=== PATIENT | female | born 1940 | race African-American/Black ===

== ENCOUNTER 2017-05-31 12:34 | Inpatient (IN) ==
[2017-05-31] MEDS ORDERED: *HR* HYDROmorphone (PF) 1 MG/ML SYRINGE IVP ONE ×2 (12:41→15:39)
[2017-05-31] MEDS ORDERED: Ondansetron 4 MG/2 ML VIAL IVP ONE (12:41)
[2017-05-31] MEDS ORDERED: 0.9 % Sodium Chloride 1,000 ML IVC ONE (12:41)
[2017-05-31 13:06] LABS: Bilirubin,Urine Negative (Negative); Blood,Urine Trace-intact (Negative); Clarity,Urine Clear (Clear); Glucose,Urine (UA) Normal (Normal); Ketones,Urine Negative (Negative); Leukocyte Esterase,Urine Negative (Negative); Nitrite,Urine Negative (Negative); PH,Urine 8.5 pH Units (5.0-8.0); Protein,Urine 100 mg/dL (Neg-Trace); Urobilinogen,Urine Normal (Normal)
[2017-05-31 13:09] LABS: Color,Urine Light Yellow (Yellow)
[2017-05-31 13:20] LABS: Basophils # 0.1 K/mcL (0.0-0.2); Hematocrit 43.5 % (35.3-44.9); Hemoglobin 13.8 g/dL (11.5-15.4); Immature Granulocytes % 0.4 % (0-4); Lymphocytes % 20.2 %; Mean Corpuscular HGB Conc 31.7 g/dL (31.6-35.5); Mean Corpuscular Hemoglobin 29.7 pg (28.0-33.3); Mean Corpuscular Volume 93.5 fL (83.0-100.0); Mean Platelet Volume 10.8 fL (9.4-12.4); Monocytes # 0.2 K/mcL (0.0-1.3); Monocytes % 3.8 %; Neutrophils # 3.8 K/mcL (1.6-8.9); Platelet Count 268 K/mcL (140-400); Red Blood Count 4.65 M/mcL (3.82-4.97); Red Cell Distribution Width 13.5 % (11.5-14.5); Segmented Neutrophils % 74.6 %
[2017-05-31 13:28] LABS: INR 1.1; Prothrombin Time 12.1 Seconds (9.4-12.1)
[2017-05-31 13:42] LABS: Alanine Aminotransferase 24 Units/L (7-52); Albumin 4.7 g/dL (3.5-5.7); Alkaline Phosphatase 174 Units/L (34-104); Aspartate Amino Transferase 39 Units/L (13-39); BUN/Creatinine Ratio 16 (6-26); Bilirubin,Direct 0.2 mg/dL (0.0-0.2); Bilirubin,Indirect 0.9 mg/dL (0.0-1.2); Bilirubin,Total 1.1 mg/dL (0.3-1.0); Blood Urea Nitrogen 11 mg/dL (8-23); Calcium 9.9 mg/dL (8.6-10.3); Carbon Dioxide 25 mEq/L (23-29); Chloride 100 mEq/L (98-107); Globulin 4.5 g/dL (2.4-3.5); Glucose 125 mg/dL (70-105); Lipase 5 Units/L (11-82); Osmolality,Calculated 283 (280-300); Potassium 3.8 mEq/L (3.5-5.1); Sodium 136 mEq/L (136-145); Total Protein 9.2 g/dL (6.4-8.9); eGFR For African Americans > 60 (> 60); eGFR For Non-African Americans > 60 (> 60)
--- NOTE | 2017-05-31 13:50 | Emergency Department Note ---
Disposition Clinical Impression: Pancreatitis Qualifiers: Chronicity: acute Pancreatitis type: unspecified pancreatitis type Acute pancreatitis complication: unspecified Qualified Code(s): K85.90 - Acute pancreatitis without necrosis or infection, unspecified Abdominal pain Qualifiers: Abdominal location: epigastric Qualified Code(s): R10.13 - Epigastric pain Nausea and vomiting Qualifiers: Vomiting type: unspecified Vomiting Intractability: unspecified Qualified Code( s): R11.2 - Nausea with vomiting, unspecified Disposition: Admitted As Inpatient Condition: Good Time of Disposition: 15:55 Abdominal Pain HPI - General Chief Complaint: ED Abdominal Pain Stated Complaint: abd pain Time Seen by Provider: 05/31/17 12:37 Source: EMS Mode of arrival: ambulatory Limitations: no limitations Nursing Notes Reviewed: Yes Vital Signs Reviewed: Yes - History of Present Illness HPI Narrative: Patient presents emergency room by EMS for evaluation of abdominal pain. Patient has history of pancreatitis. She feels that this is similar to her previous issues of pancreatitis. Patient denies any trauma or injury. Denies any inciting agent at this time. Patient denies any nausea or vomiting. Denies chest pain shortness of breath headache vision changes fevers or chills. No diarrhea. Pain complaint is epigastric pain and left-sided chest wall pain. Pt Subjective Complaint: abdominal pain Onset (ago): Just [employer] Location: epigastric Pain Severity: moderate Pain Scale: 8 Quality: sharp Radiation: L flank Improves with: nothing Worsens with: nothing Associated symptoms: Reports: nausea. Denies: vomiting, diarrhea, fever, chills , constipation, dysuria, hematemesis, hematochezia, melena, hematuria Treatments prior to arrival: none - Related Data Home Medications Medication Instructions Recorded Confirmed Tizanidine [Zanaflex] 4 mg PO DAILY 05/16/15 08/02/16 Ranitidine HCl [Zantac] 150 mg PO TID 08/05/15 08/02/16 Citalopram Hydrobromide [Celexa] 40 mg PO DAILY 08/02/16 08/02/16 LORazepam [Ativan] 1 mg PO BID 08/02/16 08/02/16 Trazodone HCl 150 mg PO HS 08/02/16 08/02/16 Previous Rx's Medication Instructions Recorded OxyCODONE/APAP 10/325 [Percocet 1 tab PO Q6H PRN #0 11/23/16 10/325 MG] LORazepam [Ativan] 1 mg PO BID #30 tablet 08/02/16 Trazodone HCl 150 mg PO HS #30 tablet 08/02/16 Cyclobenzaprine [Flexeril] 10 mg PO TID #20 tablet 08/24/16 OxyCODONE/APAP 5/325 [Percocet 1 each PO Q6HR PRN #7 tablet 08/24/16 5/325] Tizanidine HCl 4 mg PO TID #14 tablet 08/24/16 Tramadol HCl [Ultram] 50 mg PO QID PRN #20 tab 08/24/16 Cephalexin [Keflex] 500 mg PO TID #30 capsule 10/20/16 Ondansetron ODT [Zofran ODT] 4 mg SL Q4HR #8 tab.rapdis 10/20/16 Dicyclomine [Bentyl] 10 mg PO QID #20 capsule 01/27/17 Allergies Allergy/AdvReac Type Severity Reaction Status Date / Time aspirin Allergy See Verified 05/31/17 12:34 Comments celecoxib [From Celebrex] Allergy Hives Verified 05/31/17 12:34 ibuprofen Allergy Hives Verified 05/31/17 12:34 Sulfa (Sulfonamide Allergy Rash Verified 05/31/17 12:34 Antibiotics) All systems ED: reviewed and negative except as stated. Review of Systems: As Per HPI Constitutional: Denies: fever, chills Cardiovascular: Denies: chest pain, palpitations, dyspnea on exertion, edema, syncope Respiratory: Denies: cough, dyspnea, wheezes, sputum production Gastrointestinal: Denies: abdominal pain, nausea, vomiting, diarrhea, constipation Genitourinary: Denies: urgency, dysuria, frequency Musculoskeletal: Denies: neck pain Neurological: Denies: headache Abdominal Pain PMH - Past Medical History Medical history: Reports: cancer, GERD, hyperlipidemia, hypertension, myocardial infarction, RA, thyroid disease, other Female Surgical History: Reports: appendectomy, breast surgery, cancer surgery, cholecystectomy, hip replacement, hysterectomy, knee replacement, orthopedic, 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 Psychiatric history: Reports: anxiety, depression - Social History Smoking status: Never smoker Alcohol use: Reports: none Drug use: Reports: none Physical Exam - General Limitations: no limitations General appearance: alert, in no apparent distress - Head Head exam: atraumatic, normocephalic, normal inspection - ENT ENT exam: normal exam, normal oropharynx, mucous membranes moist - Neck Neck exam: Present: normal inspection, full ROM, trachea midline - Chest Chest inspection: Present: normal inspection, symmetric chest wall rise - Respiratory Respiratory exam: Present: normal lung sounds bilaterally. Absent: respiratory distress, wheezes, stridor, accessory muscle use - Cardiovascular Cardiovascular exam: Present: regular rate, normal rhythm, normal heart sounds - Abdominal Exam Abdominal exam: Present: soft, tenderness. Absent: distention, guarding, rebound, rigidity, Guerra's sign, Rovsing's sign, tenderness at McBurney's Point - Extremities Exam Extremities exam: Present: normal inspection, full ROM, normal capillary refill. Absent: tenderness - Back Exam Back exam: Present: normal inspection, full ROM, CVA tenderness (L). Absent: tenderness, CVA tenderness (R) - Neurological Exam Neurological exam: Present: alert, oriented X3, CN II-XII intact, normal gait - Skin Skin exam: Present: warm, dry, intact, normal color Course Course Narrative: Patient seen and examined the time of arrival. See history of present illness. 76-year-old female presents emergency room with complaint of abdominal pain starting in her epigastrium and now radiating into her back. She has had this presentation multiple times in the past secondary to pancreatitis. Patient denies any recent trauma or injury. Denies eating anything out of the ordinary. Denies fevers chills chest pain shortness of breath headache vision changes nausea vomiting or diarrhea prior to the events here today. She is helping coming on over the last 24-48 hours ago. Patient has no specific history of aneurysm or dissection. She has long-standing multiple medical issues. Initial triage EKG does show T-wave inversions in V2 V3 that are new in comparison to an EKG on 01/27/17. Otherwise is no acute signs of ST segment elevation or electrolyte abnormality at this time. Intervals appear to be normal. [place] is normal. No acute signs of WPW or Brugada syndrome. Concern is noted for possible acute exacerbation of pancreatitis versus intra-abdominal past on November including renal stone or vascular related issue. Lactic acid CBC chemistry lipase as well as urinalysis to be collected at this time. Pain medication and fluids to be given. Nausea medication will be added on. Chest x -ray and CT of the abdomen will be ordered and resulted. Disposition to be determined once workup and treatment course has been completed - Reevaluation(s) Reevaluation #1: Labs are otherwise unremarkable at this time. Lactic acid is negative. CT imaging is pending. Pain has not been appropriately controlled per the patient of this time. Patient given a second dose of IV fentanyl. She does have a Dilaudid pain pump in place. This could be confounding the control of her pain at this time. Time: 15:07 Reevaluation #2: Patient found to have diffuse pancreatitis with inflammation and some fluid accumulation around the pancreas at this time. No visible signs of abscess. Vessels appear to be normal in the abdomen. Lab workup is otherwise unremarkable. Repeat dosing of Dilaudid given at this time. Patient will be admitted this time for definitive evaluation and management. Dr. Wesley and I reviewed the patient's presentation symptoms and history and he agrees with the projected course of care. No other recommendations at this time. Time: 15:54 Vital Signs Temperature 98.0 F 05/31/17 12:39 Pulse Rate 73 05/31/17 12:39 Respiratory Rate 16 05/31/17 12:39 Blood Pressure 214/115 05/31/17 12:39 O2 Sat by Pulse Oximetry 99 05/31/17 12:39 Temperature 98.0 F 05/31/17 12:39 Pulse Rate 78 05/31/17 13:29 Respiratory Rate 15 05/31/17 12:47 Blood Pressure 192/114 05/31/17 13:29 O2 Sat by Pulse Oximetry 98 05/31/17 13:29 Oxygen Delivery Oxygen Delivery Room Air Abdominal Pain - MDM Narrative Medical decision making narrative: Abdominal pain, nausea, - Medical Records Medical records reviewed: Yes I reviewed the patient's medical records. - Lab Data Lab results reviewed: Yes I reviewed the patient's lab results. Result diagrams: 05/31/17 13:12 05/31/17 13:12 Lab Results 05/31/17 05/31/17 05/31/17 Range/Units 12:50 13:12 13:12 WBC (4.3-11.1) K/mcL RBC (3.82-4.97) M/mcL Hgb (11.5-15.4) g/dL Hct (35.3-44.9) % MCV (83.0-100.0) fL MCH (28.0-33.3) pg MCHC (31.6-35.5) g/dL RDW (11.5-14.5) % Plt Count (140-400) K/mcL MPV (9.4-12.4) fL Immature Gran % (0-4) % Seg Neutrophils % % Lymphocytes % % Monocytes % % Eosinophils % % Basophils % % Neutrophils # (1.6-8.9) K/mcL Lymphocytes # (0.6-4.6) K/mcL Monocytes # (0.0-1.3) K/mcL Eosinophils # (0.0-0.6) K/mcL Basophils # (0.0-0.2) K/mcL PT 12.1 (9.4-12.1) Seconds INR 1.1 APTT 33.0 (26.0-36.0) Seconds Sodium (136-145) mEq/L Potassium (3.5-5.1) mEq/L Chloride (98-107) mEq/L Carbon Dioxide (23-29) mEq/L BUN (8-23) mg/dL Creatinine (0.60-1.20) mg/dL Est GFR ( Amer) (> 60) Est GFR (Non-Af Amer) (> 60) BUN/Creatinine Ratio (6-26) Glucose (70-105) mg/dL Calculated Osmolality (280-300) Lactic Acid 1.4 (0.5-2.2) mmol/L Calcium (8.6-10.3) mg/dL Total Bilirubin (0.3-1.0) mg/dL Direct Bilirubin (0.0-0.2) mg/dL Indirect Bilirubin (0.0-1.2) mg/dL AST (13-39) Units/L ALT (7-52) Units/L Alkaline Phosphatase (34-104) Units/L Troponin I (< 0.04) ng/mL Serum Total Protein (6.4-8.9) g/dL Albumin (3.5-5.7) g/dL Globulin (2.4-3.5) g/dL Albumin/Globulin Ratio (1.1-2.2) Lipase (11-82) Units/L Urine Color Light Yellow (Yellow) Urine Clarity Clear (Clear) Urine pH 8.5 H (5.0-8.0) pH Units Ur Specific [place] 1.020 (1.010-1.025) Urine Protein 100 H (Neg-Trace) mg/dL Urine Glucose (UA) Normal (Normal) mg/dL Urine Ketones Negative (Negative) mg/dL Urine Blood Trace-intact H (Negative) Urine Nitrite Negative (Negative) Urine Bilirubin Negative (Negative) Urine Urobilinogen Normal (Normal) mg/dL Ur Leukocyte Esterase Negative (Negative) Ur Culture Indicated? NO (NO) 05/31/17 05/31/17 05/31/17 Range/Units 13:12 13:12 13:12 WBC 5.0 (4.3-11.1) K/mcL RBC 4.65 (3.82-4.97) M/mcL Hgb 13.8 (11.5-15.4) g/dL Hct 43.5 (35.3-44.9) % MCV 93.5 (83.0-100.0) fL MCH 29.7 (28.0-33.3) pg MCHC 31.7 (31.6-35.5) g/dL RDW 13.5 (11.5-14.5) % Plt Count 268 (140-400) K/mcL MPV 10.8 (9.4-12.4) fL Immature Gran % 0.4 (0-4) % Seg Neutrophils % 74.6 % Lymphocytes % 20.2 % Monocytes % 3.8 % Eosinophils % 0.0 % Basophils % 1.0 % Neutrophils # 3.8 (1.6-8.9) K/mcL Lymphocytes # 1.0 (0.6-4.6) K/mcL Monocytes # 0.2 (0.0-1.3) K/mcL Eosinophils # 0.0 (0.0-0.6) K/mcL Basophils # 0.1 (0.0-0.2) K/mcL PT (9.4-12.1) Seconds INR APTT (26.0-36.0) Seconds Sodium 136 (136-145) mEq/L Potassium 3.8 (3.5-5.1) mEq/L Chloride 100 (98-107) mEq/L Carbon Dioxide 25 (23-29) mEq/L BUN 11 (8-23) mg/dL Creatinine 0.68 (0.60-1.20) mg/dL Est GFR ( Amer) > 60 (> 60) Est GFR (Non-Af Amer) > 60 (> 60) BUN/Creatinine Ratio 16 (6-26) Glucose 125 H (70-105) mg/dL Calculated Osmolality 283 (280-300) Lactic Acid (0.5-2.2) mmol/L Calcium 9.9 (8.6-10.3) mg/dL Total Bilirubin 1.1 H (0.3-1.0) mg/dL Direct Bilirubin 0.2 (0.0-0.2) mg/dL Indirect Bilirubin 0.9 (0.0-1.2) mg/dL AST 39 (13-39) Units/L ALT 24 (7-52) Units/L Alkaline Phosphatase 174 H (34-104) Units/L Troponin I < 0.03 (< 0.04) ng/mL Serum Total Protein 9.2 H (6.4-8.9) g/dL Albumin 4.7 (3.5-5.7) g/dL Globulin 4.5 H (2.4-3.5) g/dL Albumin/Globulin Ratio 1.0 L (1.1-2.2) Lipase 5 L (11-82) Units/L Urine Color (Yellow) Urine Clarity (Clear) Urine pH (5.0-8.0) pH Units Ur Specific [place] (1.010-1.025) Urine Protein (Neg-Trace) mg/dL Urine Glucose (UA) (Normal) mg/dL Urine Ketones (Negative) mg/dL Urine Blood (Negative) Urine Nitrite (Negative) Urine Bilirubin (Negative) Urine Urobilinogen (Normal) mg/dL Ur Leukocyte Esterase (Negative) Ur Culture Indicated? (NO) - Radiology Data Radiology results reviewed: Yes I reviewed the patient's radiology results. Chest x-ray is otherwise unremarkable. No acute signs of intrathoracic related pathology widening of the mediastinum CT with IV contrast confirms what appears to be inflammatory pancreatitis with inflammation of the abdomen. No signs of abscess or necrotic pancreas at this time. - EKG Data EKG attestation: Yes I reviewed and interpreted this EKG. EKG results narrative: EKG shows sinus rhythm with ventricular rate is 76. Intervals appear to be normal. IN interval 185. QRS duration is 90. QTC of 429. No acute signs of WPW, Brug[place], collateral abnormality or interval abnormality. [place] is normal. Patient does have new inverted T waves in leads V2 and V3. There is no visible signs of ST segment depression or ST segment elevation of this EKG compared to 1 on 01/27/17
[2017-05-31] MEDS ORDERED: *HR* FentaNYL (PF) 100 MCG/2 ML VIAL IVP ONE (14:12)
[2017-05-31] MEDS ORDERED: Naloxone 0.4 MG/ML INJ IVP PRN (16:47)
--- NOTE | 2017-05-31 16:56 | Internal Med History&Physical ---
Date of Encounter: 05/31/17 Time of Encounter: 16:30 Assessment and Plan (1) Pancreatitis Current visit: Yes Status: Acute Acute on chronic pancreatitis - unclear etiology NPO, IV fluids, IV Morphine, IV Zofran, IV Protonix Patient does have a pain pump which was filled with Dilaudid yesterday - Narcan PRN CT abdomen - peripancreatic fluid in the retroperitoneum compatible with pancreatitis, no evidence of pancreatic necrosis Chest x-ray - no acute cardiopulmonary process EKG - sinus rhythm with no acute ST-T changes Troponin < 0.03 Lipase - 5 UA - negative Cardiac telemetry, pulse ox, labs in a.m., monitor closely Qualifiers: Chronicity: acute Pancreatitis type: unspecified pancreatitis type Acute pancreatitis complication: unspecified Qualified Code(s): K85.90 - Acute pancreatitis without necrosis or infection, unspecified (2) Hypertension Current visit: Yes Status: Chronic Accelerated hypertension Continue IV Hydralazine as needed, continue home dose of Propranolol Qualifiers: Hypertension type: essential hypertension Qualified Code(s): I10 - Essential (primary) hypertension (3) Chronic back pain Current visit: Yes Status: Chronic Chronic back pain and generalized chronic pain Patient follows up with pain management - she does have a pain pump in her back Dilated was filled in the pain pump yesterday Qualifiers: Back pain location: low back pain Back pain laterality: midline Sciatica presence: without sciatica Qualified Code(s): M54.5 - Low back pain; G89.29 - Other chronic pain (4) Anxiety and depression Current visit: Yes Status: Chronic Chronic anxiety with depression, stable Restart home dose of Buspar and Trazodone when patient is taking PO (5) DVT prophylaxis Current visit: Yes Status: Acute Heparin subcutaneous Internal Medicine - H&P: HPI Chief complaint: Abdominal pain, vomiting Admitted From: Emergency Dept Plans for Post Hospital Care: Home History of present illness: Ms. Tello is a 76 year old female with past medical history of hyperlipidemia, hypertension, GERD, history of breast cancer, chronic pain, rheumatoid arthritis , thyroid disease, anxiety and depression. Patient presents to the ED with complaints of abdominal pain and vomiting. Examined in the ED. Patient is awake and alert. She is in discomfort due to abdominal pain. She is able to provide history. is at bedside. Patient states she developed abdominal pain about 2-3 days ago. She describes it as a sharp and cramping kind of pain. It is almost generalized. Rates it . No alleviating factors. Aggravated with food intake. Patient also has associated nausea and vomiting. She states she has had several episodes of vomiting. No blood in vomit. Patient states she cannot think of anything that may have started the symptoms. States that she has had pancreatitis in the past. Denies diarrhea or constipation. She denies chest pain or shortness of breath. Denies fever or headache. No other associated symptoms. No other acute complaints at this time. Initial workup in the ED is significant for peripancreatic fluid compatible with pancreatitis seen on CT scan. Labs are within normal limits. EKG is within normal limits. Patient is hemodynamically stable. Her blood pressure is uncontrolled at this time, likely due to pain. She is in obvious discomfort due to pain. Patient states that she has a pain pump and had Diludid filled yesterday. Past Med Surg Social Fam HX - Past Medical History Medical history: cancer, GERD, hyperlipidemia, hypertension, myocardial infarction, RA, thyroid disease, other Psychiatric history: anxiety, depression - Past Surgical History Surgical History: breast surgery, cholecystectomy, hip replacement, knee replacement, orthopedic, other, thyroidectomy, other - Social History Smoking Status: Never smoker Smokeless Tobacco Status: No Alcohol use: none Drug use: none - Family History Mother Living Status: Hx Family Cardiac Disorders: Yes Hx Family Endocrine Disorder: Yes (DM) Father Family Member Ethnicity: Non- Living Status: Hx Family Cardiac Disorders: Yes Hx Family Respiratory Disorders: Yes (COPD) Hx Family Cancer: Yes (colon cancer mother) Hx Family GI Disorders: Yes Hx Family Endocrine Disorder: Yes Hx Family Neuromuscular Disorders: No Hx Family Neurologic Disorders: No Hx Family HEENT Disorders: No Hx Family Autoimmune Disorders: No Internal Medicine - H&P: Meds Ranitidine HCl [Zantac] 150 mg PO TID 08/05/15 [History] Buspirone HCl [Buspar] 5 mg PO BID 05/31/17 [History] OxyCODONE/APAP 10/325 [Percocet 10/325 MG] 1 tab PO Q8H PRN 05/31/17 [History] Propranolol [Inderal] 20 mg PO TID 05/31/17 [History] Trazodone HCl 150 - 300 mg PO HS 05/31/17 [History] 3 Allergy/AdvReac Type Severity Reaction Status Date / Time aspirin Allergy See Verified 05/31/17 12:34 Comments celecoxib [From Celebrex] Allergy Hives Verified 05/31/17 12:34 ibuprofen Allergy Hives Verified 05/31/17 12:34 Sulfa (Sulfonamide Allergy Rash Verified 05/31/17 12:34 Antibiotics) All Systems PM: A 10-system review of systems was performed and is negative for pertinent findings except as documented above in the HPI. - Constitutional Constitutional: fatigue, no fever(s), no weakness - EENT Eyes: no blurry vision - Cardiovascular Cardiovascular ROS IM: no chest pain, no dyspnea, no dyspnea on exertion, no edema, no lightheadedness, no orthopnea, no palpitations, no syncope - Respiratory Respiratory: no cough, no dyspnea, no dyspnea on exertion, no wheezing, no chest congestion - Gastrointestinal Gastrointestinal: abdominal pain, cramping, dyspepsia, heartburn, nausea, vomiting, no bloating, no diarrhea, no dysphagia, no hematemesis, no hematochezia, no loose stools, no melena - Genitourinary Genitourinary: no dysuria - Musculoskeletal Musculoskeletal ROS IM: back pain, myalgias - Neurological Neurological ROS: no abnormal gait, no abnormal speech, no confusion, no convulsions, no dizziness, no focal weakness, no loss of vision, no numbness, no tingling - Psychiatric Psychiatric: anxiety, no confusion - Constitutional Vitals: Temp Pulse Resp BP Pulse Ox 98.0 F 72 12 181/115 100 05/31/17 12:39 05/31/17 16:38 05/31/17 16:38 05/31/17 16:38 05/31/17 16:38 General appearance: Present: cachectic, cooperative, A&O X 3, pleasant, underweight, answers questions appropriately Exam: Patient is awake and alert. She is in obvious discomfort due to abdominal pain. Requesting pain medication. - Head Head exam: Present: atraumatic - Eye Eye exam: Present: EOMI - ENT ENT exam: Present: mucous membranes dry - Respiratory Respiratory exam: Present: CTAB. Absent: accessory muscle use, chest wall tenderness, rales, respiratory distress, rhonchi, wheezes, tachypnea - Cardiovascular Cardiovascular exam: Present: RRR, +S1, +S2 - GI/Abdominal GI/Abdominal exam: Present: diminished bowel sounds, soft, tenderness (Mild epigastric and periumbilical tenderness), no peritoneal signs. Absent: distended, firm, guarding, rigid - Extremities Exam Extremities exam: Present: radial pulses palpable and symmetrical. Absent: calf tenderness, cyanotic, pedal edema - Neurological Exam Neurological exam: Present: alert, oriented X3, no focal deficits. Absent: facial droop, speech deficit Additional comments: Clinic and alert. No focal deficits noted. In obvious discomfort due to abdominal pain. Internal Med - H&P Results - Labs CBC & Chem 7: 05/31/17 13:12 05/31/17 13:12
[2017-05-31] MEDS: 0.9 % Sodium Chloride 1,000 ML IVC SCH (17:43)
[2017-05-31] MEDS: *HR* Heparin 5,000 UNIT/ML VIAL SQ SCH (17:44)
[2017-05-31] MEDS: Pantoprazole 40 MG VIAL IVP SCH (17:44)
[2017-05-31] MEDS: *HR* Morphine 2 MG/ML SYRINGE IVP PRN (17:46)
[2017-05-31] MEDS: Ondansetron 4 MG/2 ML VIAL IVP PRN (17:47)
[2017-05-31 17:48] LABS: INR 1.2; Prothrombin Time 12.8 Seconds (9.4-12.1)
[2017-05-31] MEDS ORDERED: *HR* Morphine 2 MG/ML SYRINGE IVP ONE ×2 (18:37→21:34)
[2017-05-31] MEDS ORDERED: Ketorolac 15 MG/ML VIAL IVP ONE (18:39)
[2017-05-31 20:03] LABS: Bilirubin,Urine Negative (Negative); Blood,Urine Large (Negative); Clarity,Urine Clear (Clear); Color,Urine Yellow (Yellow); Glucose,Urine (UA) 100 mg/dL (Normal); Ketones,Urine 15 mg/dL (Negative); Leukocyte Esterase,Urine Negative (Negative); Nitrite,Urine Negative (Negative); PH,Urine 6.5 pH Units (5.0-8.0); Protein,Urine >=300 mg/dL (Neg-Trace); Specific Gravity,Urine > 1.030 (1.010-1.025); Urobilinogen,Urine Normal (Normal)
[2017-05-31 20:04] LABS: Bacteria,Urine None Seen per hpf (None-Few); Hyaline Casts,Urine None Seen per lpf (None-Few); RBC,Urine TNTC per hpf (0-3); Squamous Epithelial Cell,Urine Many per lpf (None-Few)
[2017-05-31 20:13] LABS: Renal Epithelial Cells,Urine Few per hpf (None-Few)
[2017-05-31] MEDS ORDERED: traZODone 50 MG TABLET PO ONE (23:21)
[2017-06-01] MEDS ORDERED: *HR* HYDROmorphone (PF) 1 MG/ML SYRINGE IVP ONE ×2 (01:23→08:40)
[2017-06-01] MEDS: *HR* Morphine 2 MG/ML SYRINGE IVP PRN ×2 (04:15→11:19)
[2017-06-01] MEDS: Ondansetron 4 MG/2 ML VIAL IVP PRN (05:49)
[2017-06-01] MEDS: Pantoprazole 40 MG VIAL IVP SCH ×2 (05:53→17:43)
[2017-06-01] MEDS: *HR* Heparin 5,000 UNIT/ML VIAL SQ SCH ×2 (05:54→17:43)
[2017-06-01] MEDS: 0.9 % Sodium Chloride 1,000 ML IVC SCH (06:00)
--- NOTE | 2017-06-01 08:01 | Electrocardiograph Report ---
[address] [place] [address] Test Date: 2017-05-31 Pat Name: Whitney Tello Department: 103 Room: 3A21 Gender: F [place]: AM : 1940 Requested By: Tyrese Infante Order Number: [id number] Reading MD: Miguel David DO Measurements Intervals [place] Rate: 76 P: 60 HI: 185 QRS: 45 QRSD: 90 T: 34 QT: 399 QTc: 429 Interpretive Statements SINUS RHYTHM POSSIBLE LEFT ATRIAL ENLARGEMENT POSSIBLE LEFT VENTRICULAR HYPERTROPHY MODERATE T-WAVE ABNORMALITY, CONSIDER ANTERIOR ISCHEMIA Electronically Signed On 06-01-2017 7:59:31 EST by Miguel David DO
--- NOTE | 2017-06-01 11:39 | Internal Med Progress Note ---
Date of Encounter: 06/01/17 Time of Encounter: 08:30 - Assessment and plan (1) Pancreatitis Current Visit: Yes Status: Acute Assessment and plan: Acute on chronic pancreatitis - unclear etiology - abdominal pain is persistent NPO, IV fluids, IV Morphine PRN, IV Zofran, IV Protonix Patient does have a pain pump which was filled with Dilaudid yesterday - Narcan PRN CT abdomen - peripancreatic fluid in the retroperitoneum compatible with pancreatitis, no evidence of pancreatic necrosis Chest x-ray - no acute cardiopulmonary process EKG - sinus rhythm with no acute ST-T changes Troponin < 0.03 Lipase - 5 UA - negative Lipid panel - pending Cardiac telemetry, pulse ox, labs in a.m., monitor closely Qualifiers: Chronicity: acute Pancreatitis type: unspecified pancreatitis type Acute pancreatitis complication: unspecified Qualified Code(s): K85.90 - Acute pancreatitis without necrosis or infection, unspecified (2) Hypertension Current Visit: Yes Status: Chronic Assessment and plan: Accelerated hypertension Continue IV Hydralazine as needed, continue home dose of Propranolol Qualifiers: Hypertension type: essential hypertension Qualified Code(s): I10 - Essential (primary) hypertension (3) Chronic back pain Current Visit: Yes Status: Chronic Assessment and plan: Chronic back pain and generalized chronic pain Patient follows up with pain management - she does have a Dilaudid pain pump in her back Dilaudid was filled in the pain pump about 2 days ago Qualifiers: Back pain location: low back pain Back pain laterality: midline Sciatica presence: without sciatica Qualified Code(s): M54.5 - Low back pain; G89.29 - Other chronic pain (4) Anxiety and depression Current Visit: Yes Status: Chronic Assessment and plan: Chronic anxiety with depression, stable Restart home dose of Buspar and Trazodone when patient is taking PO (5) DVT prophylaxis Current Visit: Yes Status: Acute Assessment and plan: Heparin subcutaneous - Time Spent With Patient 25 - 35 minutes - Subjective Interval history: Patient examined this morning. She is awake and alert. She is in obvious discomfort due to abdominal pain. Complains of sharp left sided abdominal pain. Question is sharp and cramping. Rates it a 9/10. No alleviating factors. Hemodynamically stable. No fever. Blood pressure is uncontrolled. Admitted for acute pancreatitis. Morning labs are pending. Patient does have a Dilaudid pain pump in her back. She still complains of severe pain. This could be confounding the control of her pain. - Constitutional Vitals: Temp Pulse Resp BP Pulse Ox 99.4 F 101 14 171/91 98 06/01/17 08:16 06/01/17 08:16 06/01/17 08:16 06/01/17 08:16 06/01/17 09:00 General appearance: Present: cachectic, cooperative, A&O X 3, pleasant, underweight, answers questions appropriately Exam: Awake and alert. In obvious discomfort due to abdominal pain. - Head Head exam: Present: atraumatic - Eye Eye exam: Present: EOMI - ENT ENT exam: Present: mucous membranes dry - Respiratory Respiratory exam: Present: CTAB. Absent: accessory muscle use, chest wall tenderness, rales, respiratory distress, rhonchi, wheezes, tachypnea - Cardiovascular Cardiovascular exam: Present: RRR, +S1, +S2, tachycardia - GI/Abdominal GI/Abdominal exam: Present: soft, tenderness (Mild epigastric and left lower quadrant tenderness), no peritoneal signs. Absent: distended, firm, guarding, rigid - Extremities Exam Extremities exam: Present: radial pulses palpable and symmetrical. Absent: calf tenderness, cyanotic, pedal edema - Neurological Exam Neurological exam: Present: alert, oriented X3, no focal deficits. Absent: facial droop, speech deficit Internal Medicine: Result - Labs CBC & Chem 7: 05/31/17 13:12 05/31/17 13:12 Labs: Urine 05/31/17 Range/Units 19:45 Urine Color Yellow (Yellow) Urine Clarity Clear (Clear) Urine pH 6.5 (5.0-8.0) pH Units Ur Specific [place] > 1.030 H (1.010-1.025) Urine Protein >=300 H (Neg-Trace) mg/dL Urine Glucose (UA) 100 H (Normal) mg/dL - ABG Interpretation ABG results: PT/INR, D-dimer PT 12.8 Seconds (9.4-12.1) H 05/31/17 17:36 Consult Discharge Plan - Plan Referrals: Bello,Darrick Hays MD [Primary Care Provider] -
[2017-06-01] MEDS: *HR* HYDROmorphone (PF) 1 MG/ML SYRINGE IVP PRN ×3 (13:14→22:31)
[2017-06-01] MEDS ORDERED: Ketorolac 30 MG/ML VIAL IVP ONE (14:11)
[2017-06-01] MEDS ORDERED: *HR* LORazepam 2 MG/ML VIAL IVP ONE (15:50)
[2017-06-02] MEDS: *HR* HYDROmorphone (PF) 1 MG/ML SYRINGE IVP PRN ×2 (02:50→12:44)
[2017-06-02 04:53] LABS: Basophils % 0.2 %; Hematocrit 38.4 % (35.3-44.9); Immature Granulocytes % 0.4 % (0-4); Lymphocytes # 0.8 K/mcL (0.6-4.6); Lymphocytes % 13.5 %; Mean Corpuscular HGB Conc 31.8 g/dL (31.6-35.5); Mean Corpuscular Hemoglobin 29.5 pg (28.0-33.3); Mean Corpuscular Volume 92.8 fL (83.0-100.0); Mean Platelet Volume 10.5 fL (9.4-12.4); Monocytes # 0.7 K/mcL (0.0-1.3); Monocytes % 11.7 %; Neutrophils # 4.1 K/mcL (1.6-8.9); Nucleated Red Blood Cells 0.5 /100 WBC (0); Platelet Count 256 K/mcL (140-400); Red Blood Count 4.14 M/mcL (3.82-4.97); Red Cell Distribution Width 14.2 % (11.5-14.5); Segmented Neutrophils % 74.2 %
[2017-06-02 04:55] LABS: Hemoglobin 12.2 g/dL (11.5-15.4)
[2017-06-02 04:58] LABS: BUN/Creatinine Ratio 45 (6-26); Blood Urea Nitrogen 34 mg/dL (8-23); Calcium 8.7 mg/dL (8.6-10.3); Carbon Dioxide 23 mEq/L (23-29); Chloride 105 mEq/L (98-107); Glucose 114 mg/dL (70-105); Osmolality,Calculated 292 (280-300); Potassium 3.4 mEq/L (3.5-5.1); Sodium 137 mEq/L (136-145); eGFR For African Americans > 60 (> 60); eGFR For Non-African Americans > 60 (> 60)
[2017-06-02] MEDS: *HR* Heparin 5,000 UNIT/ML VIAL SQ SCH ×2 (04:59→18:17)
[2017-06-02] MEDS: Ondansetron 4 MG/2 ML VIAL IVP PRN ×2 (04:59→15:29)
[2017-06-02] MEDS: Pantoprazole 40 MG VIAL IVP SCH ×2 (04:59→18:17)
[2017-06-02] MEDS: Ketorolac 15 MG/ML VIAL IVP PRN ×2 (10:07→16:39)
--- NOTE | 2017-06-02 11:16 | Internal Med Progress Note ---
Date of Encounter: 06/02/17 Time of Encounter: 07:40 - Assessment and plan (1) Pancreatitis Current Visit: Yes Status: Acute Assessment and plan: Acute on chronic pancreatitis - unclear etiology - abdominal pain is slowly improving IV fluids, IV Morphine PRN, IV Zofran, IV Protonix Patient does have a pain pump which was filled with Dilaudid recently - Narcan PRN Advanced to clear liquid diet CT abdomen - peripancreatic fluid in the retroperitoneum compatible with pancreatitis, no evidence of pancreatic necrosis Chest x-ray - no acute cardiopulmonary process EKG - sinus rhythm with no acute ST-T changes Troponin < 0.03 Lipase - 5 UA - negative Lipid panel - pending Cardiac telemetry, pulse ox, labs in a.m., monitor closely Patient has been requesting more pain medication including Dilaudid. I have explained to her that she does have a pain pump and is at risk for overdose. Also explained that we may need to give her IV Narcan if she does overdose. Because of patient's persistent abdominal pain, we will discontinue morphine and start IV Dilaudid PRN. We will closely monitor patient. Patient and have again been explained about the risks of IV pain medication. Qualifiers: Chronicity: acute Pancreatitis type: unspecified pancreatitis type Acute pancreatitis complication: unspecified Qualified Code(s): K85.90 - Acute pancreatitis without necrosis or infection, unspecified (2) Hypertension Current Visit: Yes Status: Chronic Assessment and plan: Accelerated hypertension Continue IV Hydralazine as needed, continue home dose of Propranolol Add Lisinopril/HCTZ Qualifiers: Hypertension type: essential hypertension Qualified Code(s): I10 - Essential (primary) hypertension (3) Chronic back pain Current Visit: Yes Status: Chronic Assessment and plan: Chronic back pain and generalized chronic pain Patient follows up with pain management - she does have a Dilaudid pain pump in her back Dilaudid was filled in the pain pump recently Qualifiers: Back pain location: low back pain Back pain laterality: midline Sciatica presence: without sciatica Qualified Code(s): M54.5 - Low back pain; G89.29 - Other chronic pain (4) Anxiety and depression Current Visit: Yes Status: Chronic Assessment and plan: Chronic anxiety with depression, stable Restart home dose of Buspar and Trazodone (5) DVT prophylaxis Current Visit: Yes Status: Acute Assessment and plan: Heparin subcutaneous - Time Spent With Patient 25 - 35 minutes - Subjective Interval history: Patient examined this morning. She is awake and alert. Not in any distress. Complains of mild left sided abdominal pain. Also complains of a headache. Rates it a 7/10. Seems to be doing better. No alleviating factors. Hemodynamically stable. No fever. Blood pressure is uncontrolled. Admitted for acute pancreatitis. Patient does have a Dilaudid pain pump in her back. She still complains of persistent pain. This could be confounding the control of her pain. - Constitutional Vitals: Temp Pulse Resp BP Pulse Ox 97.7 F 78 14 191/95 99 06/02/17 11:07 06/02/17 11:07 06/02/17 11:07 06/02/17 11:07 06/02/17 11:07 General appearance: Present: cachectic, cooperative, A&O X 3, pleasant, underweight, answers questions appropriately Exam: Patient seems slightly anxious. She complains of persistent pain, now states that she has a headache - Head Head exam: Present: atraumatic - Eye Eye exam: Present: EOMI - ENT ENT exam: Present: mucous membranes dry - Respiratory Respiratory exam: Present: CTAB. Absent: accessory muscle use, chest wall tenderness, rales, respiratory distress, rhonchi, wheezes, tachypnea - Cardiovascular Cardiovascular exam: Present: RRR, +S1, +S2 - GI/Abdominal GI/Abdominal exam: Present: soft, tenderness (Mild left lower quadrant tenderness), no peritoneal signs. Absent: distended, firm, guarding - Extremities Exam Extremities exam: Present: radial pulses palpable and symmetrical. Absent: calf tenderness, cyanotic, pedal edema - Neurological Exam Neurological exam: Present: alert, oriented X3, no focal deficits. Absent: facial droop, speech deficit - Psychiatric Psychiatric exam: Present: anxious Internal Medicine: Result - Labs CBC & Chem 7: 06/02/17 04:17 06/02/17 04:17 Labs: Short CBC 06/02/17 Range/Units 04:17 WBC 5.6 (4.3-11.1) K/mcL Hgb 12.2 D (11.5-15.4) g/dL Hct 38.4 (35.3-44.9) % Plt Count 256 (140-400) K/mcL Neutrophils # 4.1 (1.6-8.9) K/mcL BMP 06/02/17 04:17 Sodium 137 Potassium 3.4 L Chloride 105 Carbon Dioxide 23 BUN 34 H Creatinine 0.75 Glucose 114 H Calcium 8.7 - ABG Interpretation ABG results: PT/INR, D-dimer PT 12.8 Seconds (9.4-12.1) H 05/31/17 17:36 Consult Discharge Plan - Plan Referrals: BelloDarrick MD [Primary Care Provider] -
[2017-06-02] MEDS: Lisinopril-HCTZ 20-12.5mg TABLET PO SCH (12:43)
[2017-06-02] MEDS: Potassium Chloride Elixir 20 MEQ/15 ML UDC PO SCH (12:44)
[2017-06-02] MEDS ORDERED: *HR* LORazepam 2 MG/ML VIAL IVP ONE (16:46)
[2017-06-02] MEDS ORDERED: Ketorolac 15 MG/ML VIAL IVP ONE (20:56)
[2017-06-02] MEDS ORDERED: traZODone 50 MG TABLET PO SCH (23:00)
[2017-06-03] MEDS: Ketorolac 15 MG/ML VIAL IVP PRN ×3 (03:33→18:54)
[2017-06-03 04:29] LABS: BUN/Creatinine Ratio 35 (6-26); Blood Urea Nitrogen 25 mg/dL (8-23); Calcium 8.7 mg/dL (8.6-10.3); Carbon Dioxide 25 mEq/L (23-29); Chloride 103 mEq/L (98-107); Glucose 119 mg/dL (70-105); Osmolality,Calculated 286 (280-300); Potassium 3.4 mEq/L (3.5-5.1); Sodium 135 mEq/L (136-145); eGFR For African Americans > 60 (> 60); eGFR For Non-African Americans > 60 (> 60)
[2017-06-03] MEDS ORDERED: Melatonin 3 MG TABLET PO ONE (04:30)
[2017-06-03] MEDS: *HR* Heparin 5,000 UNIT/ML VIAL SQ SCH ×2 (06:08→18:40)
[2017-06-03] MEDS: Pantoprazole 40 MG VIAL IVP SCH ×2 (06:09→18:40)
[2017-06-03] MEDS: *HR* HYDROmorphone (PF) 1 MG/ML SYRINGE IVP PRN (07:34)
--- NOTE | 2017-06-03 09:21 | Internal Med Progress Note ---
Date of Encounter: 06/03/17 Time of Encounter: 08:15 - Assessment and plan (1) Pancreatitis Current Visit: Yes Status: Acute Assessment and plan: Acute on chronic pancreatitis - unclear etiology - abdominal pain seems to be slowly improving IV fluids, IV Morphine PRN, IV Zofran, IV Protonix Patient does have a pain pump which was filled with Dilaudid recently - Narcan PRN Patient is not tolerating clear liquid diet at this time because of nausea CT abdomen - peripancreatic fluid in the retroperitoneum compatible with pancreatitis, no evidence of pancreatic necrosis Chest x-ray - no acute cardiopulmonary process EKG - sinus rhythm with no acute ST-T changes Troponin < 0.03 Lipase - 5 UA - negative Lipid panel - pending Cardiac telemetry, pulse ox, labs in a.m., monitor closely Patient has been requesting more pain medication including Dilaudid. I have explained to her that she does have a pain pump and is at risk for overdose. Also explained that we may need to give her IV Narcan if she does overdose. Because of patient's persistent abdominal pain, we will discontinue morphine and start IV Dilaudid PRN. We will closely monitor patient. Patient and have again been explained about the risks of IV pain medication. Qualifiers: Chronicity: acute Pancreatitis type: unspecified pancreatitis type Acute pancreatitis complication: unspecified Qualified Code(s): K85.90 - Acute pancreatitis without necrosis or infection, unspecified (2) Hypertension Current Visit: Yes Status: Chronic Assessment and plan: Accelerated hypertension Continue IV Hydralazine as needed, continue home dose of Propranolol Lisinopril/HCTZ was added yesterday Qualifiers: Hypertension type: essential hypertension Qualified Code(s): I10 - Essential (primary) hypertension (3) Chronic back pain Current Visit: Yes Status: Chronic Assessment and plan: Chronic back pain and generalized chronic pain Patient follows up with pain management - she does have a Dilaudid pain pump in her back Continue home dose of Percocet Dilaudid was filled in the pain pump recently - Narcan PRN Qualifiers: Back pain location: low back pain Back pain laterality: midline Sciatica presence: without sciatica Qualified Code(s): M54.5 - Low back pain; G89.29 - Other chronic pain (4) Anxiety and depression Current Visit: Yes Status: Chronic Assessment and plan: Chronic anxiety with depression, stable Restart home dose of Buspar, Trazodone (5) DVT prophylaxis Current Visit: Yes Status: Acute Assessment and plan: Heparin subcutaneous - Time Spent With Patient 25 - 35 minutes - Subjective Interval history: Patient examined this morning. She is awake and alert. Not in any distress. Complains of mild left sided abdominal pain and back pain. Also complains of a mild headache and nausea. Not tolerating oral diet. Seems to be doing better. Patient has been requesting pain medication during most of the day. No alleviating factors. Hemodynamically stable. No fever. Blood pressure is uncontrolled. Admitted for acute pancreatitis. Patient does have a Dilaudid pain pump in her back. She still complains of persistent pain. Unable to localize her pain at this time. Unclear as to how much of this is chronic pain. - Constitutional Vitals: Temp Pulse Resp BP Pulse Ox 98.9 F 89 16 179/87 97 06/03/17 07:08 06/03/17 07:08 06/03/17 07:08 06/03/17 07:08 06/03/17 07:08 General appearance: Present: cachectic, cooperative, A&O X 3, pleasant, underweight, answers questions appropriately - Head Head exam: Present: atraumatic - Eye Eye exam: Present: EOMI - ENT ENT exam: Present: mucous membranes dry - Respiratory Respiratory exam: Present: CTAB. Absent: accessory muscle use, chest wall tenderness, rales, respiratory distress, rhonchi, wheezes, tachypnea - Cardiovascular Cardiovascular exam: Present: RRR, +S1, +S2 - GI/Abdominal GI/Abdominal exam: Present: soft, tenderness (Mild left flank tenderness), no peritoneal signs. Absent: distended, firm, guarding - Extremities Exam Extremities exam: Present: radial pulses palpable and symmetrical. Absent: calf tenderness, cyanotic, pedal edema - Neurological Exam Neurological exam: Present: alert, oriented X3, no focal deficits. Absent: facial droop, speech deficit Internal Medicine: Result - Labs CBC & Chem 7: 06/02/17 04:17 06/03/17 03:52 Labs: BMP 06/03/17 03:52 Sodium 135 L Potassium 3.4 L Chloride 103 Carbon Dioxide 25 BUN 25 H Creatinine 0.71 Glucose 119 H Calcium 8.7 - ABG Interpretation ABG results: PT/INR, D-dimer PT 12.8 Seconds (9.4-12.1) H 05/31/17 17:36 Consult Discharge Plan - Plan Referrals: Darrick Bello MD [Primary Care Provider] -
[2017-06-03] MEDS ORDERED: *HR* OxyCODONE/APAP 10/325 TABLET PO PRN (09:25)
[2017-06-03] MEDS: Potassium Chloride Elixir 20 MEQ/15 ML UDC PO SCH (09:51)
[2017-06-03] MEDS: Lisinopril-HCTZ 20-12.5mg TABLET PO SCH (09:52)
[2017-06-03] MEDS: Famotidine 20 MG TABLET PO SCH (09:52)
[2017-06-03] MEDS: Ondansetron 4 MG/2 ML VIAL IVP PRN (12:38)
[2017-06-03] MEDS ORDERED: *HR* LORazepam 2 MG/ML VIAL IVP ONE (14:41)
[2017-06-03] MEDS ORDERED: Water for inj. (sterile) 10 ML IV ONE (15:07)
[2017-06-03] MEDS: *HR* OxyCODONE/APAP 10/325 TABLET PO PRN ×2 (17:04→23:03)
[2017-06-03] MEDS: 0.9 % Sodium Chloride 1,000 ML IVC SCH (18:40)
[2017-06-03] MEDS: traZODone 50 MG TABLET PO SCH (20:28)
[2017-06-04] MEDS: Ketorolac 15 MG/ML VIAL IVP PRN ×3 (00:51→14:49)
[2017-06-04] MEDS: Pantoprazole 40 MG VIAL IVP SCH ×2 (05:07→18:07)
[2017-06-04] MEDS: *HR* OxyCODONE/APAP 10/325 TABLET PO PRN ×3 (05:07→18:07)
[2017-06-04] MEDS: *HR* Heparin 5,000 UNIT/ML VIAL SQ SCH ×2 (05:08→18:07)
[2017-06-04 07:10] LABS: BUN/Creatinine Ratio 25 (6-26); Blood Urea Nitrogen 21 mg/dL (8-23); Calcium 8.2 mg/dL (8.6-10.3); Carbon Dioxide 27 mEq/L (23-29); Chloride 108 mEq/L (98-107); Glucose 89 mg/dL (70-105); Osmolality,Calculated 290 (280-300); Potassium 3.5 mEq/L (3.5-5.1); Sodium 139 mEq/L (136-145); eGFR For African Americans > 60 (> 60); eGFR For Non-African Americans > 60 (> 60)
[2017-06-04] MEDS: Ondansetron 4 MG/2 ML VIAL IVP PRN (07:32)
--- NOTE | 2017-06-04 08:07 | Internal Med Progress Note ---
Date of Encounter: 06/04/17 Time of Encounter: 08:02 - Assessment and plan (1) Pancreatitis Current Visit: Yes Status: Acute Assessment and plan: Acute on chronic pancreatitis - unclear etiology - abdominal pain seems to be slowly improving IV fluids, IV Zofran, IV Protonix Patient does have a pain pump which was filled with Dilaudid recently - Narcan PRN Patient is not tolerating clear liquid diet at this time because of nausea, will check KUB for constipation CT abdomen - peripancreatic fluid in the retroperitoneum compatible with pancreatitis, no evidence of pancreatic necrosis Chest x-ray - no acute cardiopulmonary process EKG - sinus rhythm with no acute ST-T changes Troponin < 0.03 Lipase - 5 UA - negative Lipid panel - pending Cardiac telemetry, pulse ox, labs in a.m., monitor closely will add Creon, consult GI Qualifiers: Chronicity: acute Pancreatitis type: idiopathic Acute pancreatitis complication: no infection or necrosis Qualified Code(s): K85.00 - Idiopathic acute pancreatitis without necrosis or infection (2) Anxiety and depression Current Visit: Yes Status: Chronic Assessment and plan: Chronic anxiety with depression, stable Restart home dose of Buspar, Trazodone (3) Weight loss, unintentional Current Visit: Yes Status: Chronic Assessment and plan: Likely from acute on chronic pancreatitis, consult nutrition in the GI (4) Chronic back pain Current Visit: Yes Status: Chronic Qualifiers: Back pain location: low back pain Back pain laterality: midline Sciatica presence: without sciatica Qualified Code(s): M54.5 - Low back pain; G89.29 - Other chronic pain (5) DVT prophylaxis Current Visit: Yes Status: Acute Assessment and plan: Heparin subcutaneous (6) Constipation Current Visit: No Status: Chronic Assessment and plan: She has no BM since admission will check KUB and the [place] Qualifiers: Constipation type: drug induced constipation Qualified Code(s): K59.03 - Drug induced constipation - Time Spent With Patient 25 - 35 minutes - Subjective Interval history: Patient is doing okay, she says the abdominal pain is a little improved compared to the admission, still has a lot of nausea. she has no bowel movement since admission. She states she also has left upper back pain I examined her she has tenderness to the rib cage area not the spine. Patient has chronic pancreatitis flare up once a year almost she denies alcohol use, she has history of cholecystectomy. She has not seen any GI specialist. Discussed and will take chest x-ray and rib view and the KUB . Lab was reviewed and was her.will add Creon - Constitutional Vitals: Temp Pulse Resp BP Pulse Ox 99.6 F 73 14 110/52 97 06/04/17 06:40 06/04/17 06:40 06/04/17 06:40 06/04/17 06:40 06/04/17 06:40 General appearance: Present: cachectic, cooperative, A&O X 3, pleasant, underweight, answers questions appropriately Exam: CONSTITUTIONAL: patient appears as an age appropriate female in no acute distress. EYES Clear sclerae, bilateral pupils are equal, reactive to light. EMOI. RESPIRATORY: No accessory muscle use, bilateral clear to auscultation, no wheezing, no crackles/rales. CARDIOVASCULAR: Regular heart rate, normal S1 and S2, no murmurs GASTROINTESTINAL: bowel sounds present, soft, mild tenderness to epigastric and left upper back. MUSCULOSKELETAL: Joints in normal range of motion, no clubbing, no edema, no cyanosis. Bilateral peripheral pulses 2+. NEUROLOGIC: CN II to XII are grossly intact, no focal neurological deficit. Internal Medicine: Result - Labs CBC & Chem 7: 06/02/17 04:17 06/04/17 05:36 Labs: BMP 06/04/17 05:36 Sodium 139 Potassium 3.5 Chloride 108 H Carbon Dioxide 27 BUN 21 Creatinine 0.83 Glucose 89 Calcium 8.2 L - ABG Interpretation ABG results: PT/INR, D-dimer PT 12.8 Seconds (9.4-12.1) H 05/31/17 17:36 Consult Discharge Plan - Plan Referrals: Darrick Bello MD [Primary Care Provider] -
[2017-06-04] MEDS: Lisinopril-HCTZ 20-12.5mg TABLET PO SCH (09:07)
[2017-06-04] MEDS: Sennosides 8.6 MG TABLET PO SCH ×2 (09:07→20:26)
[2017-06-04] MEDS: Potassium Chloride Elixir 20 MEQ/15 ML UDC PO SCH (09:07)
[2017-06-04] MEDS: Famotidine 20 MG TABLET PO SCH (09:08)
[2017-06-04] MEDS: *HR* LORazepam 1 MG TABLET PO PRN ×2 (10:28→22:22)
--- NOTE | 2017-06-04 12:34 | Gastroenterology Consult Note ---
<Liam Chand - Last Filed: 06/04/17 12:31> Date of Encounter: 06/04/17 Time of Encounter: 11:15 - Assessment and plan (1) Pancreatitis Current Visit: Yes Status: Acute Assessment and plan: CT A/P shows peripancreatic fluid in the retroperitoneum compatible with pancreatitis, no evidence of pancreatic necrosis. Lipase within normal limits. Check FLIP, IgG4, ionized calcium, and triglycerides. Increase IV fluids to 125 ml/hr. Continue antiemetics and pain control. Pt not tolerating clear liquids at this time. Keep NPO for now until pain improves, then advance diet slowly as tolerated. Start on Pancreatitic enzyme supplementation once eating solid food. Recommend absolute abstinence from ETOH and tobacco products. Nutritional support should be provided if remains NPO > 7 days, Nasojejunal feeds with elemental tube feeds are preferred over TPN. Qualifiers: Chronicity: acute Pancreatitis type: idiopathic Acute pancreatitis complication: no infection or necrosis Qualified Code(s): K85.00 - Idiopathic acute pancreatitis without necrosis or infection (2) Nausea & vomiting Current Visit: No Status: Resolved Assessment and plan: Continue antiemetics and IV fluids. Qualifiers: Vomiting type: unspecified Vomiting Intractability: unspecified Qualified Code(s): R11.2 - Nausea with vomiting, unspecified - Time Spent With Patient Total time spent is greater than 50% in coordination of care (as documented) at patient's floor/unit and/or counseling patient: GI History of Present Illness - Data of Consult Patient: known to practice within the last 3 years Consult date: 06/04/17 Requesting Physician: Myrna Aparicio MD - Consult Narrative Reason for consult: Recurrent pancreatitis History of present illness: Ms. Tello is a 76 year old female with PMHx of HLD, HTN, GERD, pancreatitis, breast cancer, NV, who presented to the ED with c/o abdominal pain and vomiting that started 2-3 days before admission. Pain worsened with food intake, and not alleviating factors. She reports several episodes of vomiting, but denies hematemesis/coffee ground emesis. She denies fever, chest pain, shortness of breath, diarrhea, or constipation. CT A/P shows peripancreatic fluid in the retroperitoneum compatible with pancreatitis, no evidence of pancreatic necrosis. She states she is not tolerating the liquid diet and continues to report nausea. Procedures: Colonoscopy 08/14/2015 Dr. Chinchilla: Diverticulosis, capsule endoscopy recommended. EGD 08/14/2015 Dr. Chinchilla: Large diverticulum in distal stomach. NSAIDs: None Anticoagulation: None Past Med Surg Social Fam HX - Past Medical History Medical history: cancer, GERD, hyperlipidemia, hypertension, myocardial infarction, RA, thyroid disease, other Psychiatric history: anxiety, depression - Past Surgical History Surgical History: breast surgery, cholecystectomy, hip replacement, knee replacement, orthopedic, other, thyroidectomy, other - Social History Smoking Status: Never smoker Smokeless Tobacco Status: No Alcohol use: none Drug use: none - Family History Mother Living Status: Hx Family Cardiac Disorders: Yes Hx Family Endocrine Disorder: Yes (DM) Father Family Member Ethnicity: Non- Living Status: Hx Family Cardiac Disorders: Yes Hx Family Respiratory Disorders: Yes (COPD) Hx Family Cancer: Yes (colon cancer mother) Hx Family GI Disorders: Yes Hx Family Endocrine Disorder: Yes Hx Family Neuromuscular Disorders: No Hx Family Neurologic Disorders: No Hx Family HEENT Disorders: No Hx Family Autoimmune Disorders: No - Gastrointestinal Gastrointestinal: Present: as per HPI - Constitutional Constitutional: as per HPI - EENT Eyes: as per HPI Ears: Present: as per HPI Nose, mouth and throat: Present: as per HPI - Cardiovascular Cardiovascular ROS: Present: as per HPI - Respiratory Respiratory IM: Present: as per HPI - Genitourinary Genitourinary: Absent: change in color, Urinary frequency - Neurological ROS Neurological GI: Present: as per HPI - Hematologic/Lymphatic Hematologic/Lymphatic pediatric: Present: as per HPI - Musculoskeletal Musculoskeletal ROS GI: Present: as per HPI - Integumentary Integumentary GI: Present: as per HPI - Psychiatric ROS Psychiatric GI: Present: as per HPI - Endocrine Endocrine IM: Present: as per HPI - Constitutional Vitals: Temp Pulse Resp BP Pulse Ox 99.1 F 74 15 158/70 95 06/04/17 10:40 06/04/17 10:40 06/04/17 10:40 06/04/17 10:40 06/04/17 10:40 General appearance: Present: cooperative, A&O X 3, no acute distress, answers questions appropriately - Head Head exam: Present: atraumatic, normocephalic - Eye Eye exam: Present: normal appearance, sclera anicteric - ENT ENT exam: Present: mucous membranes dry - Neck Neck exam general surgery: Present: normal inspection, trachea midline - Respiratory Respiratory exam: Present: CTAB. Absent: rales, rhonchi - Cardiovascular Cardiovascular exam: Present: RRR, +S1, +S2 - GI/Abdominal GI/Abdominal exam: Present: soft, tenderness (epigastric), no peritoneal signs. Absent: distended, firm, guarding - Rectal Rectal exam: Present: deferred - Extremities Exam Extremities exam: Present: warm - Neurological Exam Neurological exam: Present: no focal deficits - Psychiatric Psychiatric exam: Present: normal affect, normal mood - Skin Skin exam: Present: dry, intact, normal color, warm Results - Labs CBC & Chem 7: 06/02/17 04:17 06/04/17 05:36 Labs: Last Result Calcium 8.2 mg/dL (8.6-10.3) L 06/04/17 05:36 Troponin I < 0.03 ng/mL (< 0.04) 05/31/17 13:12 Entire Visit Hgb 12.2 g/dL (11.5-15.4) D 06/02/17 04:17 Hct 38.4 % (35.3-44.9) 06/02/17 04:17 PT 12.8 Seconds (9.4-12.1) H 05/31/17 17:36 Total Bilirubin 1.1 mg/dL (0.3-1.0) H 05/31/17 13:12 AST 39 Units/L (13-39) 05/31/17 13:12 ALT 24 Units/L (7-52) 05/31/17 13:12 Lipase 42 Units/L (11-82) 06/03/17 03:52 - ABG ABG results: PT/INR, D-dimer PT 12.8 Seconds (9.4-12.1) H 05/31/17 17:36 - Impressions Impressions KUB X-Ray 06/04/17 07:54 IMPRESSION: 1. No acute abnormality. D/ / aTyo Viveros MD / Tayo Viveros MD Interpreting Provider: Tayo Viveros MD Ribs w/Chest X-Ray 06/04/17 07:55 IMPRESSION: 1. No convincing acute cardiopulmonary abnormality. 2. Left basilar atelectasis versus scarring. 3. No acute abnormality identified of the ribs. D/ / Ck Day MD / Ck Day MD Interpreting Provider: Ck Day MD Consult Discharge Plan - Plan Referrals: Darrick Bello MD [Primary Care Provider] - <Alfonso Chinchilla - Last Filed: 06/04/17 17:51> Date of Encounter: 06/04/17 Time of Encounter: 14:00 - Time Spent With Patient Total time spent is greater than 50% in coordination of care (as documented) at patient's floor/unit and/or counseling patient: GI History of Present Illness - Data of Consult Requesting Physician: Myrna Aparicio MD - Consult Narrative History of present illness: Ms. Tello is a 76 year old female - Constitutional Vitals: Temp Pulse Resp BP Pulse Ox 99.0 F 78 14 114/62 95 06/04/17 14:10 06/04/17 14:10 06/04/17 14:10 06/04/17 14:10 06/04/17 14:10 Results - Labs CBC & Chem 7: 06/02/17 04:17 06/04/17 05:36 Labs: Last Result Calcium 8.2 mg/dL (8.6-10.3) L 06/04/17 05:36 Troponin I < 0.03 ng/mL (< 0.04) 05/31/17 13:12 Triglycerides 76 mg/dL (< 150) 06/04/17 13:07 Entire Visit Hgb 12.2 g/dL (11.5-15.4) D 06/02/17 04:17 Hct 38.4 % (35.3-44.9) 06/02/17 04:17 PT 12.8 Seconds (9.4-12.1) H 05/31/17 17:36 Total Bilirubin 1.1 mg/dL (0.3-1.0) H 05/31/17 13:12 AST 39 Units/L (13-39) 05/31/17 13:12 ALT 24 Units/L (7-52) 05/31/17 13:12 Lipase 42 Units/L (11-82) 06/03/17 03:52 - ABG ABG results: PT/INR, D-dimer PT 12.8 Seconds (9.4-12.1) H 05/31/17 17:36 - Impressions Impressions KUB X-Ray 06/04/17 07:54 IMPRESSION: 1. No acute abnormality. D/ / Tayo Viveros MD / Tayo Viveros MD Interpreting Provider: Tayo Viveros MD Ribs w/Chest X-Ray 06/04/17 07:55 IMPRESSION: 1. No convincing acute cardiopulmonary abnormality. 2. Left basilar atelectasis versus scarring. 3. No acute abnormality identified of the ribs. D/ / Ck Day MD / Ck Day MD Interpreting Provider: Ck Day MD - Attending Attestation I examined this patient and my medical decision-making was reviewed with the Resident Physician. I agree with the documented findings, disposition and treatment plan as described except to the extent set forth below. Patient and the acute pancreatitis. Gallbladder already out no history of drinking. Recommendation IV fluid nothing by mouth may need NG tube placement for feeding
[2017-06-04] MEDS: 0.9 % Sodium Chloride 1,000 ML IVC SCH ×2 (12:55→20:27)
[2017-06-04] MEDS: traZODone 50 MG TABLET PO SCH (20:26)
[2017-06-05] MEDS: Ketorolac 15 MG/ML VIAL IVP PRN (00:19)
[2017-06-05] MEDS: 0.9 % Sodium Chloride 1,000 ML IVC SCH ×3 (04:24→21:02)
[2017-06-05] MEDS: *HR* OxyCODONE/APAP 10/325 TABLET PO PRN (04:24)
[2017-06-05 05:42] LABS: Basophils % 0.5 %; Eosinophils # 0.7 K/mcL (0.0-0.6); Eosinophils % 16.4 %; Hematocrit 27.7 % (35.3-44.9); Immature Granulocytes % 0.2 % (0-4); Lymphocytes # 1.7 K/mcL (0.6-4.6); Lymphocytes % 40.3 %; Mean Corpuscular Hemoglobin 28.9 pg (28.0-33.3); Mean Corpuscular Volume 96.5 fL (83.0-100.0); Mean Platelet Volume 11.3 fL (9.4-12.4); Monocytes # 0.5 K/mcL (0.0-1.3); Monocytes % 13.2 %; Neutrophils # 1.2 K/mcL (1.6-8.9); Platelet Count 133 K/mcL (140-400); Red Blood Count 2.87 M/mcL (3.82-4.97); Red Cell Distribution Width 14.1 % (11.5-14.5); Segmented Neutrophils % 29.4 %
[2017-06-05 05:44] LABS: Hemoglobin 8.3 g/dL (11.5-15.4)
[2017-06-05 05:57] LABS: BUN/Creatinine Ratio 19 (6-26); Blood Urea Nitrogen 15 mg/dL (8-23); Calcium 7.8 mg/dL (8.6-10.3); Carbon Dioxide 24 mEq/L (23-29); Chloride 111 mEq/L (98-107); Glucose 86 mg/dL (70-105); Magnesium 1.7 mg/dL (1.6-2.6); Osmolality,Calculated 290 (280-300); Potassium 3.3 mEq/L (3.5-5.1); Sodium 140 mEq/L (136-145); eGFR For African Americans > 60 (> 60); eGFR For Non-African Americans > 60 (> 60)
[2017-06-05] MEDS: *HR* Heparin 5,000 UNIT/ML VIAL SQ SCH ×2 (06:07→17:53)
[2017-06-05] MEDS: Pantoprazole 40 MG VIAL IVP SCH ×2 (06:07→17:30)
[2017-06-05] MEDS: Sennosides 8.6 MG TABLET PO SCH ×2 (08:55→20:51)
[2017-06-05] MEDS: Potassium Chloride Elixir 20 MEQ/15 ML UDC PO SCH (08:55)
[2017-06-05 09:00] LABS: VBG Ionized Calcium 1.13 mmol/L (1.15-1.35); VBG PH 7.34 pH Units (7.32-7.42)
[2017-06-05] MEDS ORDERED: *HR* HYDROmorphone (PF) 1 MG/ML SYRINGE IVP PRN (10:05)
[2017-06-05] MEDS ORDERED: *HR* OxyCODONE/APAP 10/325 TABLET PO PRN (10:15)
[2017-06-05] MEDS ORDERED: Ketorolac 15 MG/ML VIAL IVP PRN (10:28)
[2017-06-05] MEDS: *HR* HYDROmorphone (PF) 1 MG/ML SYRINGE IVP PRN ×3 (10:49→20:15)
[2017-06-05] MEDS: *HR* LORazepam 1 MG TABLET PO PRN (11:29)
[2017-06-05 12:29] LABS: ANA IgG by ELISA NONE DETECTED (None Detected); Immunoglobulin G Subclass 4 75 mg/dL (1-123)
--- NOTE | 2017-06-05 12:56 | Internal Med Progress Note ---
Date of Encounter: 06/05/17 Time of Encounter: 10:00 - Assessment and plan (1) Pancreatitis Current Visit: Yes Status: Acute Assessment and plan: Continue with IV fluids continue with pain control. I think part of her issues she has not been receiving her usual doses of narcotics/pain meds. She has chronic pain issues and is on Dilaudid pump for which she receives continuous doses as well as IV boluses. We confirmed with the pain clinic and I have added IV Dilaudid to be used when necessary. Narcan is added. GI is following and helping in management. I think by tomorrow and may have to start tube feedings. Continue with IV antiemetics. Continue with IV fluids. She remains nothing by mouth. I will leave that up to GI to advance her diet as they see fit. Her workup in the ED including CT abdomen showed peripancreatic fluid in the retroperitoneum compatible with pancreatitis, no evidence of pancreatic necrosis. Her lipase was only 5 on 05/31 and it was 42 on 06/03. I will repeat a level today.. Creon has been added but we will hold that up until she is able to take by mouth as I do not see a need for this since she is nothing by mouth for now Qualifiers: Chronicity: acute Pancreatitis type: idiopathic Acute pancreatitis complication: no infection or necrosis Qualified Code(s): K85.00 - Idiopathic acute pancreatitis without necrosis or infection (2) Anemia Current Visit: No Status: Chronic Assessment and plan: I believe this is mostly dilutional anemia. I do not see any signs of a GI bleed. She has been receiving fluids and her WBC count/platelet/hemoglobin and hematocrit have old problem. I will continue to monitor. I will check stools for occult blood. Qualifiers: Anemia type: other cause Other causes of anemia: other cause, not classified Qualified Code(s): D64.89 - Other specified anemias (3) Anxiety and depression Current Visit: Yes Status: Chronic Assessment and plan: Chronic anxiety with depression, stable Continue with Buspar, Trazodone (4) Weight loss, unintentional Current Visit: Yes Status: Chronic Assessment and plan: Likely from acute on chronic pancreatitis. I think by tomorrow we may have to start tube feedings. (5) Chronic back pain Current Visit: Yes Status: Chronic Assessment and plan: He follows with pain management. She has a Dilaudid pump. This has been continuous and she has been receiving that. On top of that reconfirmed with the pain management clinic that she receives 0.5 mg of IV Dilaudid 3 times a day. I have ordered some IV Dilaudid to be used when necessary. I think this is partly contributing to her pain she has not been receiving her usual pain meds. Continue with Percocet as well. Narcan is ordered when necessary Qualifiers: Back pain location: low back pain Back pain laterality: midline Sciatica presence: without sciatica Qualified Code(s): M54.5 - Low back pain; G89.29 - Other chronic pain; G89.29 - Other chronic pain (6) DVT prophylaxis Current Visit: Yes Status: Acute Assessment and plan: Heparin subcutaneous - Subjective Interval history: No acute events. The patient continues to be nothing by mouth. She is still having pain. Apparently she has chronic pain and she is on Dilaudid pump for which she is on a continuous dose as well as boluses of 0.5 mg 3 times a day. I did confirm that with the pharmacy. She has not been receiving that hip. - Constitutional Vitals: Temp Pulse Resp BP Pulse Ox 98.4 F 61 15 120/64 95 06/05/17 10:27 06/05/17 10:27 06/05/17 10:27 06/05/17 10:27 06/05/17 10:27 General appearance: Present: cachectic, cooperative, A&O X 3, pleasant, underweight, answers questions appropriately Exam: GEN: NAD CVS: RRR. S1, S2, No m/r/g RESP: CTAB ABD: Diffuse abdominal tenderness more prominent in the epigastric area. No rebound tenderness. Positive bowel sounds. EXT: No edema. 2+ DP. No rashes NEURO: Nonfocal Internal Medicine: Result - Labs CBC & Chem 7: 06/05/17 04:44 06/05/17 04:44 Labs: Short CBC 06/05/17 Range/Units 04:44 WBC 4.1 L (4.3-11.1) K/mcL Hgb 8.3 L D (11.5-15.4) g/dL Hct 27.7 L (35.3-44.9) % Plt Count 133 L (140-400) K/mcL Neutrophils # 1.2 L (1.6-8.9) K/mcL [facility] 06/05/17 04:44 Sodium 140 Potassium 3.3 L Chloride 111 H Carbon Dioxide 24 BUN 15 Creatinine 0.77 Glucose 86 Calcium 7.8 L - ABG Interpretation ABG results: PT/INR, D-dimer PT 12.8 Seconds (9.4-12.1) H 05/31/17 17:36 Consult Discharge Plan - Plan Referrals: Darrick Bello MD [Primary Care Provider] -
[2017-06-05] MEDS: Ondansetron 4 MG/2 ML VIAL IVP PRN (15:10)
[2017-06-05] MEDS: traZODone 50 MG TABLET PO SCH (20:52)
[2017-06-06] MEDS: *HR* LORazepam 1 MG TABLET PO PRN (02:14)
[2017-06-06] MEDS: *HR* HYDROmorphone (PF) 1 MG/ML SYRINGE IVP PRN ×5 (04:30→22:30)
[2017-06-06 04:43] LABS: Basophils % 0.6 %; Nucleated Red Blood Cells 0.6 /100 WBC (0); Red Cell Distribution Width 14.1 % (11.5-14.5)
[2017-06-06 04:45] LABS: Eosinophils # 0.4 K/mcL (0.0-0.6); Eosinophils % 10.9 %; Hematocrit 25.5 % (35.3-44.9); Hemoglobin 7.8 g/dL (11.5-15.4); Immature Granulocytes % 2.9 % (0-4); Immature Platelets 7.6 % (1.1-6.1); Lymphocytes # 1.5 K/mcL (0.6-4.6); Lymphocytes % 41.7 %; Mean Corpuscular HGB Conc 30.6 g/dL (31.6-35.5); Mean Corpuscular Volume 98.1 fL (83.0-100.0); Mean Platelet Volume 11.8 fL (9.4-12.4); Monocytes # 0.5 K/mcL (0.0-1.3); Monocytes % 13.1 %; Neutrophils # 1.1 K/mcL (1.6-8.9); Segmented Neutrophils % 30.8 %
[2017-06-06 04:47] LABS: BUN/Creatinine Ratio 17 (6-26); Blood Urea Nitrogen 11 mg/dL (8-23); Calcium 7.9 mg/dL (8.6-10.3); Carbon Dioxide 21 mEq/L (23-29); Chloride 114 mEq/L (98-107); Glucose 68 mg/dL (70-105); Osmolality,Calculated 288 (280-300); Potassium 4.3 mEq/L (3.5-5.1); Sodium 140 mEq/L (136-145); eGFR For African Americans > 60 (> 60); eGFR For Non-African Americans > 60 (> 60)
[2017-06-06] MEDS: *HR* Heparin 5,000 UNIT/ML VIAL SQ SCH (05:19)
[2017-06-06] MEDS: Pantoprazole 40 MG VIAL IVP SCH ×2 (05:19→18:37)
[2017-06-06] MEDS: 0.9 % Sodium Chloride 1,000 ML IVC SCH ×4 (05:19→21:38)
[2017-06-06] MEDS ORDERED: *HR* Dextrose 50 % in Water (Syg) 50 ML SYRINGE IVP ONE (05:44)
[2017-06-06 05:48] LABS: Platelet Count 96 K/mcL (140-400)
[2017-06-06 05:50] LABS: Platelet Estimate Decreased (Normal)
[2017-06-06] MEDS: Potassium Chloride Elixir 20 MEQ/15 ML UDC PO SCH (08:39)
[2017-06-06] MEDS: Sennosides 8.6 MG TABLET PO SCH ×2 (08:39→21:38)
--- NOTE | 2017-06-06 10:10 | Internal Med Progress Note ---
Date of Encounter: 06/06/17 Time of Encounter: 10:10 - Assessment and plan (1) Pancreatitis Current Visit: Yes Status: Acute Assessment and plan: Continue with IV fluids continue with pain control. Pain may be hard to control given her chronic pain issues. She remains nothing by mouth. We will send her down for an NJ tube and start tube feedings after that. GI is following and helping in management. Her workup in the ED including CT abdomen showed peripancreatic fluid in the retroperitoneum compatible with pancreatitis, no evidence of pancreatic necrosis. Her lipase was only 5 on and it was 42 on 06/03. It was 14 yesterday.. Creon has been added but now on hold and she is not taking anything by mouth. Qualifiers: Chronicity: acute Pancreatitis type: idiopathic Acute pancreatitis complication: no infection or necrosis Qualified Code(s): K85.00 - Idiopathic acute pancreatitis without necrosis or infection (2) Anemia Current Visit: No Status: Chronic Assessment and plan: Again continues to have a drop in H&H . Again I believe this is mostly dilutional given the IV fluid amounts that she has been given. Her WBCs platelets and hemoglobin have dropped consistently throughout her stay. I do not see any signs of a GI bleed. I will continue to monitor. I will check stools for occult blood. Stop heparin subcutaneous and add SCDs. Qualifiers: Anemia type: other cause Other causes of anemia: other cause, not classified Qualified Code(s): D64.89 - Other specified anemias (3) Anxiety and depression Current Visit: Yes Status: Chronic Assessment and plan: Chronic anxiety with depression, stable Continue with Buspar, Trazodone (4) Severe protein-calorie malnutrition Current Visit: Yes Status: Acute Assessment and plan: Likely from acute on chronic pancreatitis. Place NJ tube. and start tube feeding. dietary following (5) Chronic back pain Current Visit: Yes Status: Chronic Assessment and plan: She follows with pain management. She has a Dilaudid pump. This has been continuous and she has been receiving that. On top of that we confirmed with the pain management clinic that she receives 0.5 mg of IV Dilaudid 3 times a day . Due to continuous pain I have placed her on .5 mg IV Dilaudid every 4 hours when necessary. I think this is partly contributing to her pain as she is dependent on narcotics. Continue with Percocet as well. Narcan is ordered when necessary Qualifiers: Back pain location: low back pain Back pain laterality: midline Sciatica presence: without sciatica Qualified Code(s): M54.5 - Low back pain; G89.29 - Other chronic pain; G89.29 - Other chronic pain (6) DVT prophylaxis Current Visit: Yes Status: Acute Assessment and plan: Stop heparin subcutaneous and add SCDs given the drop in hemoglobin.. - Subjective Interval history: No acute events. Patient was seen and examined. She says her pain is better but it is not significantly better. She continues to have epigastric pain with radiation to the back. She is still significantly tender to palpation. She is still nothing by mouth. - Constitutional Vitals: Temp Pulse Resp BP Pulse Ox 98.7 F 68 16 103/48 92 06/06/17 06:35 06/06/17 06:35 06/06/17 06:35 06/06/17 06:35 06/06/17 08:54 General appearance: Present: cachectic, cooperative, A&O X 3, pleasant, underweight, answers questions appropriately Exam: GEN: NAD CVS: RRR. S1, S2, No m/r/g RESP: CTAB ABD: Significant epigastric tenderness. No rebound tenderness. Positive bowel sounds. EXT: No edema. 2+ DP. No rashes NEURO: Nonfocal Internal Medicine: Result - Labs CBC & Chem 7: 06/06/17 04:23 06/06/17 04:23 Labs: Short CBC 06/06/17 Range/Units 04:23 WBC 3.5 L (4.3-11.1) K/mcL Hgb 7.8 L (11.5-15.4) g/dL Hct 25.5 L (35.3-44.9) % Plt Count 96 L (140-400) K/mcL Neutrophils # 1.1 L (1.6-8.9) K/mcL BMP 06/06/17 04:23 Sodium 140 Potassium 4.3 D Chloride 114 H Carbon Dioxide 21 L BUN 11 Creatinine 0.66 Glucose 68 L Calcium 7.9 L - ABG Interpretation ABG results: PT/INR, D-dimer PT 12.8 Seconds (9.4-12.1) H 05/31/17 17:36 Consult Discharge Plan - Plan Referrals: Darrick Bello MD [Primary Care Provider] -
--- NOTE | 2017-06-06 21:18 | Event Note ---
Date of Encounter: 06/06/17 Time of Encounter: 10:00 I placed consult to IR regarding NJ tube placement and was told by the IR physician that they do not perform those here at [place] through IR. I asked and was told an ICU nurse can place one
[2017-06-06] MEDS: traZODone 50 MG TABLET PO SCH (21:38)
[2017-06-07] MEDS ORDERED: Dextrose Gel 15 GM/37.5 ML TUBE PO ONE (00:12)
[2017-06-07] MEDS: *HR* LORazepam 1 MG TABLET PO PRN ×2 (00:25→13:56)
[2017-06-07] MEDS ORDERED: Mag Hydrox/Al Hydrox/Simeth 30 ML UDC PO PRN (02:57)
[2017-06-07] MEDS: *HR* HYDROmorphone (PF) 1 MG/ML SYRINGE IVP PRN ×4 (04:11→16:01)
[2017-06-07] MEDS: 0.9 % Sodium Chloride 1,000 ML IVC SCH ×3 (05:16→21:06)
[2017-06-07] MEDS: Pantoprazole 40 MG VIAL IVP SCH ×2 (05:17→17:19)
[2017-06-07 06:04] LABS: Basophils % 0.6 %; Eosinophils # 0.3 K/mcL (0.0-0.6); Eosinophils % 10.1 %; Hematocrit 27.5 % (35.3-44.9); Hemoglobin 8.4 g/dL (11.5-15.4); Immature Granulocytes % 0.3 % (0-4); Lymphocytes # 1.2 K/mcL (0.6-4.6); Lymphocytes % 37.7 %; Mean Corpuscular HGB Conc 30.5 g/dL (31.6-35.5); Mean Corpuscular Hemoglobin 29.6 pg (28.0-33.3); Mean Corpuscular Volume 96.8 fL (83.0-100.0); Mean Platelet Volume 10.3 fL (9.4-12.4); Monocytes # 0.5 K/mcL (0.0-1.3); Monocytes % 14.4 %; Neutrophils # 1.2 K/mcL (1.6-8.9); Platelet Count 123 K/mcL (140-400); Red Blood Count 2.84 M/mcL (3.82-4.97); Red Cell Distribution Width 13.8 % (11.5-14.5); Segmented Neutrophils % 36.9 %
[2017-06-07 06:23] LABS: BUN/Creatinine Ratio 10 (6-26); Blood Urea Nitrogen 6 mg/dL (8-23); Calcium 8.1 mg/dL (8.6-10.3); Carbon Dioxide 25 mEq/L (23-29); Chloride 111 mEq/L (98-107); Glucose 70 mg/dL (70-105); Osmolality,Calculated 286 (280-300); Potassium 3.9 mEq/L (3.5-5.1); Sodium 140 mEq/L (136-145); eGFR For African Americans > 60 (> 60); eGFR For Non-African Americans > 60 (> 60)
[2017-06-07] MEDS: Sennosides 8.6 MG TABLET PO SCH ×2 (08:28→21:06)
[2017-06-07] MEDS: Potassium Chloride Elixir 20 MEQ/15 ML UDC PO SCH (08:28)
--- NOTE | 2017-06-07 15:04 | Internal Med Progress Note ---
Date of Encounter: 06/07/17 Time of Encounter: 15:02 - Assessment and plan (1) Pancreatitis Current Visit: Yes Status: Acute Assessment and plan: Continue with IV fluids continue with pain control. Pain may be hard to control given her chronic pain issues. KUB shows NJ tube is not in correct position will need adjusted. Plan is to start TF one NJ in correct position. GI is following and helping in management. Her workup in the ED including CT abdomen showed peripancreatic fluid in the retroperitoneum compatible with pancreatitis, no evidence of pancreatic necrosis. Her lipase was only 5 on and it was 42 on 06/03. It was 14 yesterday.. Creon has been added. Qualifiers: Chronicity: acute Pancreatitis type: idiopathic Acute pancreatitis complication: no infection or necrosis Qualified Code(s): K85.00 - Idiopathic acute pancreatitis without necrosis or infection (2) Anxiety and depression Current Visit: Yes Status: Chronic Assessment and plan: Chronic anxiety with depression, stable Continue with Buspar, Trazodone (3) Anemia Current Visit: No Status: Chronic Qualifiers: Anemia type: unspecified type Qualified Code(s): D64.9 - Anemia, unspecified (4) Chronic back pain Current Visit: Yes Status: Chronic Assessment and plan: She follows with pain management. She has a Dilaudid pump. This has been continuous and she has been receiving that. On top of that we confirmed with the pain management clinic that she receives 0.5 mg of IV Dilaudid 3 times a day . We have her on additional 0.5 mg IV Dilaudid every 4 hours when necessary. I think this is partly contributing to her pain as she is dependent on narcotics. Continue with Percocet as well. Qualifiers: Back pain location: low back pain Back pain laterality: midline Sciatica presence: without sciatica Qualified Code(s): M54.5 - Low back pain; G89.29 - Other chronic pain; G89.29 - Other chronic pain (5) Severe protein-calorie malnutrition Current Visit: Yes Status: Acute Assessment and plan: Likely from acute on chronic pancreatitis. Place NJ tube. and start tube feeding. dietary following - Subjective Interval history: No acute issues. Rates pain currently 6 out of 10 in severity. Denies fevers/ chills, n/v. - Constitutional Vitals: Temp Pulse Resp BP Pulse Ox 98.1 F 102 15 150/74 96 06/07/17 10:28 06/07/17 10:28 06/07/17 10:28 06/07/17 10:28 06/07/17 10:28 General appearance: Present: cachectic, cooperative, A&O X 3, pleasant, underweight, answers questions appropriately - Respiratory Respiratory exam: Present: CTAB. Absent: accessory muscle use, rales, rhonchi, wheezes - Cardiovascular Cardiovascular exam: Present: RRR, +S1, +S2. Absent: diastolic murmur, gallop, rubs, systolic murmur - GI/Abdominal GI/Abdominal exam: Present: hernia, normal bowel sounds, soft, tenderness. Absent: distended, guarding, rigid - Extremities Exam Extremities exam: Present: warm, radial pulses palpable and symmetrical. Absent : calf tenderness, cyanotic, pedal edema Internal Medicine: Result - Labs CBC & Chem 7: 06/07/17 05:52 06/07/17 05:52 Labs: Short CBC 06/07/17 Range/Units 05:52 WBC 3.3 L (4.3-11.1) K/mcL Hgb 8.4 L (11.5-15.4) g/dL Hct 27.5 L (35.3-44.9) % Plt Count 123 L (140-400) K/mcL Neutrophils # 1.2 L (1.6-8.9) K/mcL BMP 06/07/17 05:52 Sodium 140 Potassium 3.9 Chloride 111 H Carbon Dioxide 25 BUN 6 L Creatinine 0.62 Glucose 70 Calcium 8.1 L - ABG Interpretation ABG results: PT/INR, D-dimer PT 12.8 Seconds (9.4-12.1) H 05/31/17 17:36 - Impressions Impressions KUB X-Ray 06/06/17 16:49 IMPRESSION: Placement of feeding tube. Metallic tip is the mid abdomen, likely in distal body/antral region of the stomach. D/ /06/2017 18:08:17 Roverto Maria MD / earnold Interpreting Provider: Roverto Maria MD X-Ray 06/06/17 19:05 IMPRESSION: Interval advancement of feeding tube by a few cm, tip now likely in the distal stomach or proximal duodenum. D/ / Dulce Maria Ac Cha, MD / Dulce Maria Ac Cha, MD Interpreting Provider: Dulce Maria Ac Cha, MD X-Ray 06/07/17 05:04 IMPRESSION: Abnormal positioning of feeding tube. The tip is no longer in the stomach, now coiled back into the proximal esophagus. The findings were sent to the Radiology Results [facility] at 5:39 am on 06/07/2017to be communicated to a licensed caregiver. D/ / Tayo Sarah MD / Tayo Sarah MD Interpreting Provider: Tayo Sarah MD X-Ray 06/07/17 09:00 IMPRESSION: Feeding tube tip projects over the 2nd portion of the duodenum. D/ / Hernando Echeverria MD / Hernando Echeverria MD Interpreting Provider: Hernando Echeverria MD - VTE Documentation of Mechanical Device: Intermittent pneumatic compression device Consult Discharge Plan - Plan Referrals: Darrick Bello MD [Primary Care Provider] -
[2017-06-07] MEDS: traZODone 50 MG TABLET PO SCH (21:06)
[2017-06-08] MEDS: 0.9 % Sodium Chloride 1,000 ML IVC SCH ×2 (04:37→14:11)
[2017-06-08] MEDS: Pantoprazole 40 MG VIAL IVP SCH ×2 (04:58→19:57)
[2017-06-08] MEDS: *HR* HYDROmorphone (PF) 1 MG/ML SYRINGE IVP PRN (04:58)
[2017-06-08 05:32] LABS: Basophils % 0.7 %; Eosinophils # 0.3 K/mcL (0.0-0.6); Eosinophils % 8.5 %; Hematocrit 28.9 % (35.3-44.9); Hemoglobin 8.8 g/dL (11.5-15.4); Immature Granulocytes % 0.3 % (0-4); Lymphocytes % 34.6 %; Mean Corpuscular HGB Conc 30.4 g/dL (31.6-35.5); Mean Corpuscular Hemoglobin 29.4 pg (28.0-33.3); Mean Corpuscular Volume 96.7 fL (83.0-100.0); Mean Platelet Volume 11.9 fL (9.4-12.4); Monocytes # 0.5 K/mcL (0.0-1.3); Monocytes % 16.3 %; Neutrophils # 1.2 K/mcL (1.6-8.9); Platelet Count 131 K/mcL (140-400); Red Blood Count 2.99 M/mcL (3.82-4.97); Red Cell Distribution Width 13.8 % (11.5-14.5); Segmented Neutrophils % 39.6 %
[2017-06-08 05:47] LABS: BUN/Creatinine Ratio 10 (6-26); Blood Urea Nitrogen 5 mg/dL (8-23); Carbon Dioxide 29 mEq/L (23-29); Chloride 108 mEq/L (98-107); Glucose 115 mg/dL (70-105); Osmolality,Calculated 292 (280-300); Potassium 3.5 mEq/L (3.5-5.1); Sodium 142 mEq/L (136-145); eGFR For African Americans > 60 (> 60); eGFR For Non-African Americans > 60 (> 60)
[2017-06-08] MEDS: Potassium Chloride Elixir 20 MEQ/15 ML UDC PO SCH (09:21)
[2017-06-08] MEDS: Sennosides 8.6 MG TABLET PO SCH ×2 (09:21→20:09)
[2017-06-08] MEDS: *HR* OxyCODONE/APAP 10/325 TABLET PO PRN ×2 (09:23→16:27)
[2017-06-08] MEDS: traZODone 50 MG TABLET PO SCH (20:09)
--- NOTE | 2017-06-08 22:37 | Internal Med Progress Note ---
Date of Encounter: 06/08/17 Time of Encounter: 10:33 - Assessment and plan (1) Debility Current Visit: Yes Status: Acute Assessment and plan: Reviewed SW note Patient will need walker script, wheelchair, feed tube supplies prior to d/c and faxed to [facility]. [facility] and Passport referral (2) Pancreatitis Current Visit: Yes Status: Acute Assessment and plan: Hold IV fluids. Pain may be hard to control given her chronic pain issues. Continue TF via [place] tubei. Her workup in the ED including CT abdomen showed peripancreatic fluid in the retroperitoneum compatible with pancreatitis, no evidence of pancreatic necrosis. Her lipase was only 5 on 05/31 and it was 42 on 06/03. It was 14 yesterday.. Creon has been added. Needs to increase activity will do up with assist. PT.OT Qualifiers: Chronicity: acute Pancreatitis type: idiopathic Acute pancreatitis complication: no infection or necrosis Qualified Code(s): K85.00 - Idiopathic acute pancreatitis without necrosis or infection (3) Anxiety and depression Current Visit: Yes Status: Chronic Assessment and plan: Chronic anxiety with depression, stable Continue with Buspar, Trazodone (4) Anemia Current Visit: No Status: Chronic Qualifiers: Anemia type: unspecified type Qualified Code(s): D64.9 - Anemia, unspecified (5) Chronic back pain Current Visit: Yes Status: Chronic Qualifiers: Back pain location: low back pain Back pain laterality: midline Sciatica presence: without sciatica Qualified Code(s): M54.5 - Low back pain; G89.29 - Other chronic pain; G89.29 - Other chronic pain (6) Severe protein-calorie malnutrition Current Visit: Yes Status: Acute Assessment and plan: Continue TF and encourage PO. dietary following. Okay to DC fluids. - Subjective Interval history: No acute issues. Pain still constant. Mostly back pain is most bothersome. She is not active, lays in bed currently. Denies fevers/chills, n/v. - Constitutional Vitals: Temp Pulse Resp BP Pulse Ox 98.7 F 68 14 101/59 95 06/08/17 20:35 06/08/17 20:35 06/08/17 20:35 06/08/17 20:35 06/08/17 20:35 General appearance: Present: cachectic, cooperative, A&O X 3, underweight, answers questions appropriately - Respiratory Respiratory exam: Present: CTAB. Absent: accessory muscle use, rales, rhonchi, wheezes - Cardiovascular Cardiovascular exam: Present: RRR, +S1, +S2. Absent: diastolic murmur, gallop, rubs, systolic murmur - GI/Abdominal GI/Abdominal exam: Present: normal bowel sounds, soft, tenderness, no peritoneal signs. Absent: distended Internal Medicine: Result - Labs CBC & Chem 7: 06/08/17 03:32 06/08/17 03:32 Labs: Short CBC 06/08/17 Range/Units 03:32 WBC 3.0 L (4.3-11.1) K/mcL Hgb 8.8 L (11.5-15.4) g/dL Hct 28.9 L (35.3-44.9) % Plt Count 131 L (140-400) K/mcL Neutrophils # 1.2 L (1.6-8.9) K/mcL BMP 06/08/17 03:32 Sodium 142 Potassium 3.5 Chloride 108 H Carbon Dioxide 29 BUN 5 L Creatinine 0.52 L Glucose 115 H Calcium 8.0 L - ABG Interpretation ABG results: PT/INR, D-dimer PT 12.8 Seconds (9.4-12.1) H 05/31/17 17:36 - VTE Documentation of Mechanical Device: Intermittent pneumatic compression device Consult Discharge Plan - Plan Referrals: Darrick Bello MD [Primary Care Provider] -
[2017-06-09] MEDS: 0.9 % Sodium Chloride 1,000 ML IVC SCH ×2 (01:38→19:41)
[2017-06-09] MEDS: *HR* OxyCODONE/APAP 10/325 TABLET PO PRN ×2 (04:57→12:58)
[2017-06-09] MEDS: Pantoprazole 40 MG VIAL IVP SCH (04:58)
[2017-06-09] MEDS: *HR* LORazepam 1 MG TABLET PO PRN ×2 (05:02→17:53)
[2017-06-09] MEDS ORDERED: *HR* HYDROmorphone (PF) 1 MG/ML SYRINGE IVP PRN (08:01)
[2017-06-09] MEDS: Sennosides 8.6 MG TABLET PO SCH ×2 (09:21→20:05)
[2017-06-09] MEDS: Potassium Chloride Elixir 20 MEQ/15 ML UDC PO SCH (09:21)
--- NOTE | 2017-06-09 18:05 | Internal Med Progress Note ---
Date of Encounter: 06/09/17 Time of Encounter: 11:31 - Assessment and plan (1) Debility Current Visit: Yes Status: Acute Assessment and plan: Reviewed SW note Patient will need walker script, wheelchair, feed tube supplies prior to d/c and faxed to [facility]. [facility] and Passport referral Home going needs are delayed by holiday weekend (2) Pancreatitis Current Visit: Yes Status: Acute Assessment and plan: Hold IV fluids. Pain may be hard to control given her chronic pain issues. Continue TF via [place] tubei. Her workup in the ED including CT abdomen showed peripancreatic fluid in the retroperitoneum compatible with pancreatitis, no evidence of pancreatic necrosis. Her lipase was only 5 on 05/31 and it was 42 on 06/03. It was 14 yesterday.. Creon has been added. Needs to increase activity will do up with assist. PT.OT Qualifiers: Chronicity: acute Pancreatitis type: idiopathic Acute pancreatitis complication: no infection or necrosis Qualified Code(s): K85.00 - Idiopathic acute pancreatitis without necrosis or infection (3) Anxiety and depression Current Visit: Yes Status: Chronic Assessment and plan: Chronic anxiety with depression, stable Continue with Buspar, Trazodone (4) Anemia Current Visit: No Status: Chronic Qualifiers: Anemia type: unspecified type Qualified Code(s): D64.9 - Anemia, unspecified (5) Chronic back pain Current Visit: Yes Status: Chronic Assessment and plan: She follows with pain management. She has a Dilaudid pump. This has been continuous and she has been receiving that. On top of that we confirmed with the pain management clinic that she receives 0.5 mg of IV Dilaudid 3 times a day . We have her on additional 0.5 mg IV Dilaudid every 4 hours when necessary. I think this is partly contributing to her pain as she is dependent on narcotics. Continue with Percocet as well. Qualifiers: Back pain location: low back pain Back pain laterality: midline Sciatica presence: without sciatica Qualified Code(s): M54.5 - Low back pain; G89.29 - Other chronic pain; G89.29 - Other chronic pain (6) Severe protein-calorie malnutrition Current Visit: Yes Status: Acute Assessment and plan: Continue TF and encourage PO. dietary following. Okay to DC fluids. - Subjective Interval history: No acute issues. Mostly back pain is most bothersome. She is working on increasing activity and getting out of bed. Denies fevers/chills, n/v. - Constitutional Vitals: Temp Pulse Resp BP Pulse Ox 98 F 67 15 102/49 95 06/09/17 11:44 06/09/17 11:44 06/09/17 11:44 06/09/17 11:44 06/09/17 11:44 General appearance: Present: cachectic, cooperative, A&O X 3, underweight, answers questions appropriately Exam: - Respiratory Respiratory exam: Present: CTAB. Absent: accessory muscle use, rales, rhonchi, wheezes - Cardiovascular Cardiovascular exam: Present: RRR, +S1, +S2. Absent: diastolic murmur, gallop, rubs, systolic murmur - GI/Abdominal GI/Abdominal exam: Present: normal bowel sounds, soft, tenderness, no peritoneal signs. Absent: distended Internal Medicine: Result - Labs CBC & Chem 7: 06/08/17 03:32 06/08/17 03:32 - ABG Interpretation ABG results: PT/INR, D-dimer PT 12.8 Seconds (9.4-12.1) H 05/31/17 17:36 - VTE Documentation of Mechanical Device: Intermittent pneumatic compression device Consult Discharge Plan - Plan Referrals: Darrick Bello MD [Primary Care Provider] -
[2017-06-09] MEDS: traZODone 50 MG TABLET PO SCH (20:05)
[2017-06-10] MEDS: *HR* OxyCODONE/APAP 10/325 TABLET PO PRN ×2 (01:18→15:37)
[2017-06-10] MEDS: Potassium Chloride Elixir 20 MEQ/15 ML UDC PO SCH (09:21)
[2017-06-10] MEDS: Sennosides 8.6 MG TABLET PO SCH ×2 (09:21→20:15)
[2017-06-10] MEDS ORDERED: Ofloxacin OPTH Drops 5 ML BOTTLE LEFT EYE SCH (12:00)
[2017-06-10] MEDS: Ciprofloxacin OPTH Soln 2.5 ML BOTTLE BOTH EYES SCH ×3 (13:17→20:13)
--- NOTE | 2017-06-10 18:27 | Internal Med Progress Note ---
Date of Encounter: 06/10/17 Time of Encounter: 18:26 - Assessment and plan (1) Debility Current Visit: Yes Status: Acute Assessment and plan: Reviewed SW note Patient will need walker script, wheelchair, feed tube supplies prior to d/c and faxed to [facility]. [facility] and Passport referral Home going needs are delayed by holiday weekend (2) Pancreatitis Current Visit: Yes Status: Acute Assessment and plan: Hold IV fluids. Pain may be hard to control given her chronic pain issues. Continue TF via [place] tubei. Her workup in the ED including CT abdomen showed peripancreatic fluid in the retroperitoneum compatible with pancreatitis, no evidence of pancreatic necrosis. Her lipase was only 5 on 05/31 and it was 42 on 06/03. It was 14 yesterday.. Creon has been added. Needs to increase activity will do up with assist. PT.OT Qualifiers: Chronicity: acute Pancreatitis type: idiopathic Acute pancreatitis complication: no infection or necrosis Qualified Code(s): K85.00 - Idiopathic acute pancreatitis without necrosis or infection (3) Anxiety and depression Current Visit: Yes Status: Chronic Assessment and plan: Chronic anxiety with depression, stable Continue with Buspar, Trazodone (4) Anemia Current Visit: No Status: Chronic Qualifiers: Anemia type: unspecified type Qualified Code(s): D64.9 - Anemia, unspecified (5) Chronic back pain Current Visit: Yes Status: Chronic Assessment and plan: She follows with pain management. She has a Dilaudid pump. This has been continuous and she has been receiving that. On top of that we confirmed with the pain management clinic that she receives 0.5 mg of IV Dilaudid 3 times a day . We have her on additional 0.5 mg IV Dilaudid every 4 hours when necessary. I think this is partly contributing to her pain as she is dependent on narcotics. Continue with Percocet as well. Qualifiers: Back pain location: low back pain Back pain laterality: midline Sciatica presence: without sciatica Qualified Code(s): M54.5 - Low back pain; G89.29 - Other chronic pain; G89.29 - Other chronic pain (6) Severe protein-calorie malnutrition Current Visit: Yes Status: Acute Assessment and plan: Continue TF and encourage PO. dietary following. Okay to DC fluids. - Subjective Interval history: No acute issues. Abdominal pain is chronic. Denies fevers/chills, n/v. - Constitutional Vitals: Temp Pulse Resp BP Pulse Ox 98.4 F 76 16 103/62 95 06/10/17 15:16 06/10/17 15:16 06/10/17 15:16 06/10/17 15:16 06/10/17 15:16 General appearance: Present: cachectic, cooperative, A&O X 3, underweight, answers questions appropriately Exam: - Respiratory Respiratory exam: Present: CTAB. Absent: accessory muscle use, rales, rhonchi, wheezes - Cardiovascular Cardiovascular exam: Present: RRR, +S1, +S2. Absent: diastolic murmur, gallop, rubs, systolic murmur - GI/Abdominal GI/Abdominal exam: Present: hernia, normal bowel sounds, soft, tenderness. Absent: distended, guarding, rigid - Extremities Exam Extremities exam: Present: warm, radial pulses palpable and symmetrical. Absent : calf tenderness, cyanotic, pedal edema Internal Medicine: Result - Labs CBC & Chem 7: 06/08/17 03:32 06/08/17 03:32 - ABG Interpretation ABG results: PT/INR, D-dimer PT 12.8 Seconds (9.4-12.1) H 05/31/17 17:36 - VTE Documentation of Mechanical Device: Intermittent pneumatic compression device Consult Discharge Plan - Plan Referrals: Darrick Bello MD [Primary Care Provider] -
[2017-06-10] MEDS: traZODone 50 MG TABLET PO SCH (20:15)
[2017-06-11] MEDS: *HR* OxyCODONE/APAP 10/325 TABLET PO PRN ×2 (02:16→16:49)
[2017-06-11] MEDS: 0.9 % Sodium Chloride 1,000 ML IVC SCH (04:07)
[2017-06-11] MEDS: Ciprofloxacin OPTH Soln 2.5 ML BOTTLE BOTH EYES SCH ×4 (08:21→20:32)
[2017-06-11] MEDS: Sennosides 8.6 MG TABLET PO SCH ×2 (08:23→20:32)
[2017-06-11] MEDS: Potassium Chloride Elixir 20 MEQ/15 ML UDC PO SCH (08:23)
--- NOTE | 2017-06-11 10:10 | Discharge Summary ---
Date of Encounter: 06/11/17 Time of Encounter: 10:08 - Discharge Diagnosis (1) Pancreatitis Priority: Primary Status: Acute Qualifiers: Chronicity: acute Pancreatitis type: idiopathic Acute pancreatitis complication: no infection or necrosis Qualified Code(s): K85.00 - Idiopathic acute pancreatitis without necrosis or infection (2) Debility Priority: Secondary Status: Acute (3) Anxiety and depression Priority: Secondary Status: Chronic (4) Anemia Priority: Secondary Status: Chronic Qualifiers: Anemia type: unspecified type Qualified Code(s): D64.9 - Anemia, unspecified (5) Chronic back pain Priority: Secondary Status: Chronic Qualifiers: Back pain location: low back pain Back pain laterality: midline Sciatica presence: without sciatica Qualified Code(s): M54.5 - Low back pain; G89.29 - Other chronic pain; G89.29 - Other chronic pain (6) Severe protein-calorie malnutrition Priority: Secondary Status: Acute - Discharge Medications Prescriptions: Ciprofloxacin OPTH Soln [Ciloxan OPTH Soln] 2 drop BOTH EYES Q4HWA #1 bottle Home Medications: Ranitidine HCl [Zantac] 150 mg PO TID 08/05/15 [History] Buspirone HCl [Buspar] 5 mg PO BID 05/31/17 [History] OxyCODONE/APAP 10/325 [Percocet 10/325 MG] 1 tab PO Q8H PRN 05/31/17 [History] Propranolol [Inderal] 20 mg PO TID 05/31/17 [History] Trazodone HCl 150 - 300 mg PO HS 05/31/17 [History] Patient Taking Own Medication 2 mg IV DAILY 06/04/17 [History] Ciprofloxacin OPTH Soln [Ciloxan OPTH Soln] 2 drop BOTH EYES Q4HWA #1 bottle 07/28 [Rx] Allergies/Adverse Reactions: 3 Allergy/AdvReac Type Severity Reaction Status Date / Time aspirin Allergy See Verified 05/31/17 12:34 Comments celecoxib [From Celebrex] Allergy Hives Verified 05/31/17 12:34 ibuprofen Allergy Hives Verified 05/31/17 12:34 Sulfa (Sulfonamide Allergy Rash Verified 05/31/17 12:34 Antibiotics) Date of admission: 05/31/17 16:47 Primary care physician: Darrick Bello MD Consults: 05/31/17 17:18 Consult to Nutrition [CONS] Routine Comment: Consulting Provider: NUTRITION Reason for Dietary Consult: Other PO Supplementation Other:: weight loss Consult to Tax Economist [CONS] Routine Reason for SW Consult: Discharge planning 06/04/17 08:16 Consult to Gastroenterology [CONS] Routine Consulting Provider: Gastroenterology [place] Reason for Consult: recurrent pancreatitis and weight loss Call Completed: No 06/06/17 10:03 Consult to Interventional Radiology [CONS] Routine Consulting Provider: Radiology Interventional Cols Reason for Consult: NJ tube placement Call Completed: Yes 06/06/17 10:58 dietary consult [Consult to Nutrition] [CONS] Routine Comment: Consulting Provider: NUTRITION Reason for Dietary Consult: Tube Feed Start & Manage 06/08/17 16:46 Consult to Invasive Line Access Team [CONS] Routine Reason for Consult: poor vascular access Line Type: EPIV Discharging clinician: Amy English - Patient Status Disposition: Home Health Service Condition: Good Functional capacity at discharge: wheelchair bound Overall status at discharge: patient is progressing back to baseline - Discharge Instructions Follow Up With: Darrick Bello MD [Primary Care Provider] - - Diet and Activity Activity: increase activity as tolerated Diet: advance to your usual diet, low fat, low cholesterol Hospital course: Ms. Tello is a 76 year old female with past medical history of pancreatitis, hyperlipidemia, hypertension, GERD, history of breast cancer, chronic pain, rheumatoid arthritis, thyroid disease, anxiety and depression. Patient presents to the ED with complaints of abdominal pain and vomiting. Patient states she developed abdominal pain about 2-3 CAR GROOMER, aggravated with food intake, with N/V. Patient states she cannot think of anything that may have started the symptoms. Denies fever or headache. Initial workup in the ED is significant for peripancreatic fluid compatible with pancreatitis seen on CT scan. Labs are within normal limits. EKG is within normal limits. Patient is hemodynamically stable. Patient states that she has a Dilaudid pain pump which she states is not controlling the pain. She was admitted for acute on chronic pancreatitis. She was treated with supportive care; Dilaudid IV, Zofran, Protonix prn. Lipase trended and remained within normal limits. She was placed NPO and her diet was advanced as tolerated, but patient had nausea and was unable to tolerate diet. GI was consulted and she was transitioned to start NJ feeds. Acute abdominal pain resolved. She does have chronic abdominal pain at baseline. Nausea improved as well. NJ tube was eventually removed and patient was able to tolerate food after monitoring throughout the day. She was discharged home in stable condition. - Time Spent with Patient Total time spent providing and/or coordinating discharge services: Greater than 30 minutes - Constitutional Vitals: Temp Pulse Resp BP Pulse Ox 98.4 F 70 14 100/54 95 06/11/17 08:24 06/11/17 08:24 06/11/17 08:24 06/11/17 08:24 06/11/17 08:24 General appearance: Present: cachectic, cooperative, A&O X 3, underweight, answers questions appropriately Exam: - Respiratory Respiratory exam: Present: CTAB. Absent: accessory muscle use, rales, rhonchi, wheezes - Cardiovascular Cardiovascular exam: Present: RRR, +S1, +S2. Absent: diastolic murmur, gallop, rubs, systolic murmur - GI/Abdominal GI/Abdominal exam: Present: normal bowel sounds, soft, tenderness, no peritoneal signs. Absent: distended - VTE Documentation of Mechanical Device: Intermittent pneumatic compression device
--- NOTE | 2017-06-11 10:30 | Physician Discharge Referral ---
Home Health/Hosp Referral Info Transfer to: Home Health - Diagnosis (1) Pancreatitis Priority: Primary Status: Acute (2) Debility Priority: Secondary Status: Acute (3) Anxiety and depression Priority: Secondary Status: Chronic (4) Anemia Priority: Secondary Status: Chronic (5) Chronic back pain Priority: Secondary Status: Chronic (6) Severe protein-calorie malnutrition Priority: Secondary Status: Acute - Respiratory Orders Smoking Cessation: Smoking cessation has been advised. For more information, call the [place] Tobacco Quit Line at 7-412-CZAE-NOW. - Diet/Nutrition Diet/Nutrition: List: NJ tube feed supplies. - Activity Activity Orders: Walker - Services Needed Following services are medically necessary services: Home Infusion Other Treatments: For NJ tube feed maintenance. - Transfer Medications Prescriptions: Ciprofloxacin OPTH Soln [Ciloxan OPTH Soln] 2 drop BOTH EYES Q4HWA #1 bottle Home Medications: Ranitidine HCl [Zantac] 150 mg PO TID 08/05/15 [History] Buspirone HCl [Buspar] 5 mg PO BID 05/31/17 [History] OxyCODONE/APAP 10/325 [Percocet 10/325 MG] 1 tab PO Q8H PRN 05/31/17 [History] Propranolol [Inderal] 20 mg PO TID 05/31/17 [History] Trazodone HCl 150 - 300 mg PO HS 05/31/17 [History] Patient Taking Own Medication 2 mg IV DAILY 06/04/17 [History] Ciprofloxacin OPTH Soln [Ciloxan OPTH Soln] 2 drop BOTH EYES Q4HWA #1 bottle 07/28 [Rx] Allergies/Adverse Reactions: 3 Allergy/AdvReac Type Severity Reaction Status Date / Time aspirin Allergy See Verified 05/31/17 12:34 Comments celecoxib [From Celebrex] Allergy Hives Verified 05/31/17 12:34 ibuprofen Allergy Hives Verified 05/31/17 12:34 Sulfa (Sulfonamide Allergy Rash Verified 05/31/17 12:34 Antibiotics) Certification: Further, I certify that my clinical findings support that this patient is homebound (i.e. absences from home require considerable and taxing effort and are for medical reasons or advent services or infrequently or short duration when for other reasons) because: Homebound Reason: Patient requires assistance of a person or device to safely leave home Attestation: My signature below is to certify that this patient is under my care and that I, or nurse practitioner, or a physician's industrial hire sales assistant working with me, has a face-to -face encounter with this patient.
[2017-06-11] MEDS ORDERED: *HR* HYDROmorphone (PF) 1 MG/ML SYRINGE IVP PRN (16:34)
[2017-06-11] MEDS: traZODone 50 MG TABLET PO SCH (20:31)
[2017-06-12] MEDS: *HR* OxyCODONE/APAP 10/325 TABLET PO PRN (04:15)
[2017-06-12] MEDS: Ciprofloxacin OPTH Soln 2.5 ML BOTTLE BOTH EYES SCH ×2 (07:49→12:07)
[2017-06-12] MEDS: Sennosides 8.6 MG TABLET PO SCH (07:51)
[2017-06-12] MEDS: Potassium Chloride Elixir 20 MEQ/15 ML UDC PO SCH (07:51)
[2017-06-12 11:21] VITALS: BP 98/51
--- NOTE | 2017-06-12 12:28 | Event Note ---
Date of Encounter: 06/12/17 Time of Encounter: 12:26 Patient seen and evaluated. Able to tolerate meals without issue. Feels overall better. VS reviewed, unremarkable. PE: Gen, NAD, CVS: RRR, Lungs: CTAB, Ext: no edema Left eye conjunctivities improved, sclera clear 1. Acute onchronic pacreatitis: stable for discharge home. No TF needed since patient is eating without issue.
--- NOTE | 2017-06-13 10:26 | Physician Discharge Referral ---
Home Health/Hosp Referral Info Transfer to: Home Health - Diagnosis (1) Pancreatitis Priority: Primary Status: Acute (2) Debility Priority: Secondary Status: Acute (3) Anxiety and depression Priority: Secondary Status: Chronic (4) Anemia Priority: Secondary Status: Chronic (5) Chronic back pain Priority: Secondary Status: Chronic (6) Severe protein-calorie malnutrition Priority: Secondary Status: Acute - Respiratory Orders Smoking Cessation: Smoking cessation has been advised. For more information, call the [place] Tobacco Quit Line at 2-711-LAMK-NOW. - Diet/Nutrition Diet/Nutrition: List: low fat - Activity Activity: List: as directed by physical therapy - Services Needed Following services are medically necessary services: Nursing, Physical Therapy, Occupational Therapy - Transfer Medications Prescriptions: Ciprofloxacin OPTH Soln [Ciloxan OPTH Soln] 2 drop BOTH EYES Q4HWA #1 bottle Home Medications: Ranitidine HCl [Zantac] 150 mg PO TID 08/05/15 [History] Buspirone HCl [Buspar] 5 mg PO BID 05/31/17 [History] OxyCODONE/APAP 10/325 [Percocet 10/325 MG] 1 tab PO Q8H PRN 05/31/17 [History] Propranolol [Inderal] 20 mg PO TID 05/31/17 [History] Trazodone HCl 150 - 300 mg PO HS 05/31/17 [History] Patient Taking Own Medication 2 mg IV DAILY 06/04/17 [History] Ciprofloxacin OPTH Soln [Ciloxan OPTH Soln] 2 drop BOTH EYES Q4HWA #1 bottle 07/28 [Rx] Allergies/Adverse Reactions: 3 Allergy/AdvReac Type Severity Reaction Status Date / Time aspirin Allergy See Verified 05/31/17 12:34 Comments celecoxib [From Celebrex] Allergy Hives Verified 05/31/17 12:34 ibuprofen Allergy Hives Verified 05/31/17 12:34 Sulfa (Sulfonamide Allergy Rash Verified 05/31/17 12:34 Antibiotics) Certification: Further, I certify that my clinical findings support that this patient is homebound (i.e. absences from home require considerable and taxing effort and are for medical reasons or denominational services or infrequently or short duration when for other reasons) because: Homebound Reason: Patient requires assistance of a person or device to safely leave home, Leaving home requires considerable and taxing effort due to condition Attestation: My signature below is to certify that this patient is under my care and that I, or nurse practitioner, or a physician's miller head assistant wet process working with me, has a face-to -face encounter with this patient.
== END 2017-06-12 14:38 | disposition home health service (06) | DRG 438 ==
LOC: EMEROO 12:34 → 3ANU 12:34 → SUATTDRO 16:47 → 3ANU 16:47
PROVIDERS: ADMIT Hospitalist; ATTEND Hospitalist

== ENCOUNTER 2017-08-10 10:29 | Inpatient (IN) ==
[2017-08-10] MEDS ORDERED: *HR* FentaNYL (PF) 100 MCG/2 ML VIAL IVP ONE ×5 (10:56→16:36)
[2017-08-10] MEDS ORDERED: 0.9 % Sodium Chloride 1,000 ML IVC ONE (10:58)
--- NOTE | 2017-08-10 11:03 | Emergency Department Note ---
Disposition Clinical Impression: Pancreatitis Qualifiers: Chronicity: acute Pancreatitis type: unspecified pancreatitis type Acute pancreatitis complication: unspecified Qualified Code(s): K85.90 - Acute pancreatitis without necrosis or infection, unspecified Disposition: Admitted As Inpatient Condition: Fair Time of Disposition: 14:30 Abdominal Pain HPI - General Chief Complaint: ED Abdominal Pain Stated Complaint: So Sick/chest pain Time Seen by Provider: 08/10/17 10:37 Source: patient, family Mode of arrival: ambulatory Nursing Notes Reviewed: Yes Vital Signs Reviewed: Yes - History of Present Illness HPI Narrative: 69-year-old female with a history of chronic pancreatitis presents to emergency room with complaint of abdominal pain. She states that this has happened many times the past, most recent flare of pancreatitis was in June where she was admitted to this facility for approximately 13 days. She states this feels very similar to previous episodes having diffuse abdominal pain which radiates to her back. Exacerbating or relieving symptoms. Does admit to associated nausea without vomiting, she does have chronic diarrhea. She uses a Dilaudid pain pump at home which has not been helpful. Denies any history of alcohol abuse. Pt Subjective Complaint: abdominal pain Consistency: constant Location: diffuse Pain Severity: severe Pain Scale: 10 Quality: sharp Radiation: back Improves with: nothing Worsens with: nothing Associated symptoms: Reports: nausea, diarrhea, chills. Denies: fever Treatments prior to arrival: prescription analgesics - Related Data Home Medications Medication Instructions Recorded Confirmed Buspirone HCl [Buspar] 5 mg PO BID 05/31/17 08/10/17 OxyCODONE/APAP 10/325 [Percocet 1 tab PO Q6H PRN 05/31/17 08/10/17 10/325 MG] Propranolol [Inderal] 20 mg PO TID 05/31/17 08/10/17 Trazodone HCl 150 - 300 mg PO HS 05/31/17 08/10/17 Citalopram Hydrobromide 40 mg PO DAILY 08/10/17 08/10/17 [Citalopram HBr] Sucralfate [Carafate] 1 gm PO TID 08/10/17 08/10/17 Previous Rx's Medication Instructions Recorded Furosemide [Lasix] 20 mg PO DAILY #14 tablet 07/30/17 Allergies Allergy/AdvReac Type Severity Reaction Status Date / Time aspirin Allergy See Verified 05/31/17 12:34 Comments celecoxib [From Celebrex] Allergy Hives Verified 05/31/17 12:34 ibuprofen Allergy Hives Verified 05/31/17 12:34 Sulfa (Sulfonamide Allergy Rash Verified 05/31/17 12:34 Antibiotics) All systems ED: reviewed and negative except as stated. 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 Psychiatric history: Reports: anxiety, depression - Social History Smoking status: Never smoker Alcohol use: Reports: none Drug use: Reports: none Physical Exam - General Limitations: no limitations General appearance: alert - Head Head exam: atraumatic, normocephalic, normal inspection - Chest Chest inspection: Present: normal inspection, symmetric chest wall rise - Respiratory Respiratory exam: Present: normal lung sounds bilaterally - Cardiovascular Cardiovascular exam: Present: tachycardia, irregular rhythm, normal heart sounds - Abdominal Exam Abdominal exam: Present: soft, tenderness, guarding, normal bowel sounds. Absent: distention, rebound, rigidity Abdominal tenderness: Present: diffuse Course Course Narrative: Female presenting with abdominal pain. EKG shows atrial fibrillation. We will give her fentanyl for her pain, Zofran for her nausea. Obtain labs of CBC, BMP , hepatic panel, lipase, amylase, lactic acid. Patient is also to determine whether an abdominal CT as necessary. Vital Signs Temperature 98.2 F 08/10/17 10:32 Pulse Rate 71 08/10/17 10:32 Respiratory Rate 18 08/10/17 10:32 Blood Pressure 196/94 08/10/17 10:32 O2 Sat by Pulse Oximetry 95 08/10/17 10:32 Temperature 98.2 F 08/10/17 10:32 Pulse Rate 89 08/10/17 13:52 Respiratory Rate 20 08/10/17 14:46 Blood Pressure 197/111 08/10/17 14:46 O2 Sat by Pulse Oximetry 97 08/10/17 13:52 Oxygen Delivery Oxygen Delivery Room Air Abdominal Pain - MDM Narrative Medical decision making narrative: 77-year-old female presenting to emergency room with abdominal pain. Did obtain labs which were significant for hypokalemia, otherwise unremarkable. CT scan revealed stranding around the pancreas likely secondary to acute pancreatitis. Her pain has been difficult to control, despite the use of fentanyl and morphine liquid. She has also been hypertensive during this time and we will start at Cardene drip. We will assess with hospitalist, who agrees for admission at this time for further management of acute pancreatitis and hypertensive urgency. - Lab Data Result diagrams: 08/10/17 11:03 08/10/17 10:58 Lab Results 08/10/17 08/10/17 08/10/17 Range/Units 10:58 11:03 11:03 WBC 3.6 L (4.3-11.1) K/mcL RBC 4.37 (3.82-4.97) M/mcL Hgb 12.8 (11.5-15.4) g/dL Hct 41.6 (35.3-44.9) % MCV 95.2 (83.0-100.0) fL MCH 29.3 (28.0-33.3) pg MCHC 30.8 L (31.6-35.5) g/dL RDW 13.9 (11.5-14.5) % Plt Count 195 (140-400) K/mcL MPV 11.7 (9.4-12.4) fL Immature Gran % 0.3 (0-4) % Seg Neutrophils % 67.8 % Lymphocytes % 26.9 % Monocytes % 3.9 % Eosinophils % 0.3 % Basophils % 0.8 % Neutrophils # 2.4 (1.6-8.9) K/mcL Lymphocytes # 1.0 (0.6-4.6) K/mcL Monocytes # 0.1 (0.0-1.3) K/mcL Eosinophils # 0.0 (0.0-0.6) K/mcL Basophils # 0.0 (0.0-0.2) K/mcL PT 12.3 H (9.4-12.1) Seconds INR 1.1 Sodium 139 (136-145) mEq/L Potassium 3.3 L (3.5-5.1) mEq/L Chloride 101 (98-107) mEq/L Carbon Dioxide 29 (23-29) mEq/L BUN 11 (8-23) mg/dL Creatinine 0.67 (0.60-1.20) mg/dL Est GFR ( Amer) > 60 (> 60) Est GFR (Non-Af Amer) > 60 (> 60) BUN/Creatinine Ratio 16 (6-26) Glucose 129 H (70-105) mg/dL Calculated Osmolality 289 (280-300) Lactic Acid (0.5-2.2) mmol/L Calcium 10.0 (8.6-10.3) mg/dL Total Bilirubin 1.0 (0.3-1.0) mg/dL Direct Bilirubin 0.2 (0.0-0.2) mg/dL Indirect Bilirubin 0.8 (0.0-1.2) mg/dL AST 42 H (13-39) Units/L ALT 31 (7-52) Units/L Alkaline Phosphatase 147 H (34-104) Units/L Troponin I < 0.03 (< 0.04) ng/mL Serum Total Protein 8.5 (6.4-8.9) g/dL Albumin 4.6 (3.5-5.7) g/dL Globulin 3.9 H (2.4-3.5) g/dL Albumin/Globulin Ratio 1.2 (1.1-2.2) Amylase 48 (29-103) Units/L Lipase 6 L (11-82) Units/L 03/03/18 Range/Units 11:11 WBC (4.3-11.1) K/mcL RBC (3.82-4.97) M/mcL Hgb (11.5-15.4) g/dL Hct (35.3-44.9) % MCV (83.0-100.0) fL MCH (28.0-33.3) pg MCHC (31.6-35.5) g/dL RDW (11.5-14.5) % Plt Count (140-400) K/mcL MPV (9.4-12.4) fL Immature Gran % (0-4) % Seg Neutrophils % % Lymphocytes % % Monocytes % % Eosinophils % % Basophils % % Neutrophils # (1.6-8.9) K/mcL Lymphocytes # (0.6-4.6) K/mcL Monocytes # (0.0-1.3) K/mcL Eosinophils # (0.0-0.6) K/mcL Basophils # (0.0-0.2) K/mcL PT (9.4-12.1) Seconds INR Sodium (136-145) mEq/L Potassium (3.5-5.1) mEq/L Chloride (98-107) mEq/L Carbon Dioxide (23-29) mEq/L BUN (8-23) mg/dL Creatinine (0.60-1.20) mg/dL Est GFR ( Amer) (> 60) Est GFR (Non-Af Amer) (> 60) BUN/Creatinine Ratio (6-26) Glucose (70-105) mg/dL Calculated Osmolality (280-300) Lactic Acid 0.8 (0.5-2.2) mmol/L Calcium (8.6-10.3) mg/dL Total Bilirubin (0.3-1.0) mg/dL Direct Bilirubin (0.0-0.2) mg/dL Indirect Bilirubin (0.0-1.2) mg/dL AST (13-39) Units/L ALT (7-52) Units/L Alkaline Phosphatase (34-104) Units/L Troponin I (< 0.04) ng/mL Serum Total Protein (6.4-8.9) g/dL Albumin (3.5-5.7) g/dL Globulin (2.4-3.5) g/dL Albumin/Globulin Ratio (1.1-2.2) Amylase (29-103) Units/L Lipase (11-82) Units/L - EKG Data EKG shows normal: axis Rate: normal Rhythm: A.Fib [place]/QRS: normal When compared to previous EKG there are: changes noted Interpretation: other (Afib, rate controlled) Critical Care Time Critical Care Time: Yes Total Critical Care Time: 35 Attestation: Critical care performed: Time is exclusive of separately billable procedures. Time includes: direct patient care, patient reassessment, coordination of patient care, interpretation of data (laboratory data, radiology data, and respiratory data), review of patient's medical records, medical consultation and documentation of patient care. Procedures included in critical care time: Procedures excluded from critical care time: Attestation Statement - Attestation Attestation: I, Tyrese Infante DO, examined this patient [id number] and my medical decision-making was reviewed with Chaparro Miller PGY - 1 , Resident Physician. I agree with the documented findings, disposition and treatment plan as described except to the extent set forth below. Please see my progress notes for details. 77-year-old female presents to the emergency room with complaint of abdominal pain. Patient has long-standing history of chronic pancreatitis. She has been admitted for this many times in the past. She was admitted as recently as June of this year for identical symptoms. She lasted 13 days in the hospital. Patient has chronic medical issues appear to be well controlled at this point. She had had acute onset of abdominal pain within the last 24-48 hours. She has a Dilaudid pump in place as well as home Percocet to help with symptom control. She has not been able to keep the Percocet down secondary to the abdominal discomfort and pain. Patient denies any specific nausea or vomiting except when she has an acute exacerbation of the discomfort. She has not wanted to eat or drink anything. She does continue to lose weight and decompensated according to the . Currently she is denying chest pain fevers chills headaches vision changes diarrhea. She denies any recent trauma or injuries. She has not had any surgical evaluations or treatment. Patient's main complaint is a acute on chronic exacerbation of her pancreatitis. She denies any progressive changes in the symptoms this is identical to all of her other events. Patient will have symptomatic control established or started here in the emergency room with IV pain medication nausea medication and fluid. Screening laboratory workup will be completed with liver function testing and lipase. Patient will have urinalysis and CT imaging of the abdomen with IV contrast if tolerated by her renal function. Patient is otherwise clinically stable based on vital signs and initial evaluation. Her physical exam is unremarkable except for abdominal discomfort and pain across the entire abdomen. Her lungs are clear heart is regular. She is very thin and frail. She does have what appears to be some aspect of the failure to thrive or cachexia secondary to not wanting to eat. Patient will most likely require admission dependent upon evaluation treatment course and medical stabilization. See detailed documentation of the physical exam, medical intervention, medical decision-making and disposition in the resident physician's note. No critical care provider this patient's treatment course. 1400 Patient is still having intermittent pain. She does have hypertension. Nicardipine drip as well as third dose of fentanyl will be given. Patient has been given oral oxycodone while here as well. CT imaging does confirm fluid accumulation around the pancreas consistent with acute pancreatitis. No other acute pathology including no acute signs of vascular issue like aneurysm or dissection were noted. This was traced all the way up to the mediastinum. Chest x-ray does not show any acute signs of mediastinal widening. Patient will have repeat dosing of pain medication continuation of treatment and admission process to be completed for nothing by mouth status pain control fluid resuscitation and blood pressure control. Patient is otherwise showing no other acute issues this point despite being uncomfortable secondary to her chronic presentation. Patient is stable admission process will be completed. Family and patient both performed. Prospective 35 minutes critical care by this patient should have a course secondary to the nicardipine drip 1500 Patient accepted the hospitalist service for evaluation and management of medical issues. No other acute issues noted at this time. Patient was started on nicardipine. Blood pressure quite available was 197 over Carlos Eduardo. No other acute pathology noted.
[2017-08-10] MEDS ORDERED: Ondansetron 4 MG/2 ML VIAL IVP ONE (11:07)
[2017-08-10 11:15] LABS: INR 1.1; Prothrombin Time 12.3 Seconds (9.4-12.1)
[2017-08-10 11:34] LABS: Alanine Aminotransferase 31 Units/L (7-52); Albumin 4.6 g/dL (3.5-5.7); Albumin/Globulin Ratio 1.2 (1.1-2.2); Alkaline Phosphatase 147 Units/L (34-104); Amylase 48 Units/L (29-103); Aspartate Amino Transferase 42 Units/L (13-39); BUN/Creatinine Ratio 16 (6-26); Bilirubin,Direct 0.2 mg/dL (0.0-0.2); Bilirubin,Indirect 0.8 mg/dL (0.0-1.2); Blood Urea Nitrogen 11 mg/dL (8-23); Carbon Dioxide 29 mEq/L (23-29); Chloride 101 mEq/L (98-107); Globulin 3.9 g/dL (2.4-3.5); Glucose 129 mg/dL (70-105); Lipase 6 Units/L (11-82); Osmolality,Calculated 289 (280-300); Potassium 3.3 mEq/L (3.5-5.1); Sodium 139 mEq/L (136-145); Total Protein 8.5 g/dL (6.4-8.9); eGFR For African Americans > 60 (> 60); eGFR For Non-African Americans > 60 (> 60)
[2017-08-10 11:35] LABS: Troponin I < 0.03 ng/mL (< 0.04)
[2017-08-10] MEDS ORDERED: OXYCODONE Oral CONC 10 MG/0.5 ML ORAL.SYG SL ONE (12:12)
[2017-08-10 12:13] LABS: Basophils % 0.8 %; Eosinophils % 0.3 %; Hematocrit 41.6 % (35.3-44.9); Hemoglobin 12.8 g/dL (11.5-15.4); Immature Granulocytes % 0.3 % (0-4); Lymphocytes % 26.9 %; Mean Corpuscular HGB Conc 30.8 g/dL (31.6-35.5); Mean Corpuscular Hemoglobin 29.3 pg (28.0-33.3); Mean Corpuscular Volume 95.2 fL (83.0-100.0); Mean Platelet Volume 11.7 fL (9.4-12.4); Monocytes # 0.1 K/mcL (0.0-1.3); Monocytes % 3.9 %; Neutrophils # 2.4 K/mcL (1.6-8.9); Platelet Count 195 K/mcL (140-400); Red Blood Count 4.37 M/mcL (3.82-4.97); Red Cell Distribution Width 13.9 % (11.5-14.5); Segmented Neutrophils % 67.8 %
[2017-08-10] MEDS ORDERED: *HR* Metoprolol 5 MG/5 ML VIAL IVP ONE (12:45)
[2017-08-10] MEDS: niCARdipine 40 MG/200 ML MLS IVC SCH ×2 (14:34→23:27)
--- NOTE | 2017-08-10 16:48 | Internal Med History&Physical ---
Date of Encounter: 08/10/17 Time of Encounter: 16:45 Assessment and Plan (1) Uncontrolled hypertension Current visit: Yes Status: Acute Was started on nicardipine drip and ER. We will continue with this. Once pain is better controlled we will titrate down nicardipine and or dark IV metoprolol as needed. (2) GERD (gastroesophageal reflux disease) Current visit: Yes Status: Acute IV Protonix. Resume Carafate. Qualifiers: Esophagitis presence: esophagitis presence not specified Qualified Code(s) : K21.9 - Gastro-esophageal reflux disease without esophagitis (3) DVT prophylaxis Current visit: No Status: Acute SCDs. (4) Severe protein-calorie malnutrition Current visit: No Status: Acute Nutrition consult. Resume oral intake as soon as possible. (5) Chronic back pain Current visit: No Status: Chronic Continue with pain pump. Qualifiers: Back pain location: low back pain Back pain laterality: midline Sciatica presence: without sciatica Qualified Code(s): M54.5 - Low back pain; G89.29 - Other chronic pain; G89.29 - Other chronic pain (6) H/O malignant neoplasm of breast Current visit: No Status: Chronic Follow-up with PCP. (7) Pancreatitis Current visit: Yes Status: Acute She was admitted to our service 3 months ago and treated for acute pancreatitis diagnosed based on abdominal pain and imaging findings. That time lipase was 42 , currently lipase is low at 6. I suspect acute on chronic pancreatitis with likely pancreatic burnout. I will check lipid panel. Start nothing by mouth. LR IV fluids. Pain control with IV fentanyl. IV Protonix. Consult GI. I will obtain MRCP to rule out malignancy as a potential cause for recurrent acute pancreatitis. Patient recently received a dose of oral Lasix for lower extremity swelling. Given that Lasix has been associated and rare causes with acute pancreatitis I will recommend complete cessation of Lasix. She denies any alcohol use, denies any tobacco use. She is status post cholecystectomy. She is at high risk for morbidity, mortality and complications due to treatment with IV controlled substances for acute pancreatitis. Qualifiers: Chronicity: acute Pancreatitis type: unspecified pancreatitis type Acute pancreatitis complication: unspecified Qualified Code(s): K85.90 - Acute pancreatitis without necrosis or infection, unspecified Internal Medicine - H&P: HPI Chief complaint: Abdominal pain Admitted From: Emergency Dept Plans for Post Hospital Care: Home History of present illness: Ms. Tello is a 77 year old female with past medical history significant for recurrent acute pancreatitis, hypertension, GERD, hyperlipidemia who presents to the hospital for evaluation of abdominal pain. She was admitted 1 month ago and treated for acute pancreatitis. After discharge her abdominal pain had been tolerable. For the last 4 days she reported worsening epigastric abdominal pain described as squeezing, today was 10/10 radiating to her left flank and back. She reports associated nausea and decreased appetite. No vomiting. Food ingestion worsens the pain. Review of systems: positive for chronic back pain status post Dilaudid IV pain pump implantation, recurrent abdominal pain, weight loss of 21 pounds in 6 months. The remainder of a 10 point review of systems was negative. Family history was reviewed and found to be noncontributory to this case. Past Med Surg Social Fam HX - Past Medical History Medical history: cancer, GERD, hyperlipidemia, hypertension, myocardial infarction, RA, thyroid disease, other Psychiatric history: anxiety, depression - Past Surgical History Surgical History: appendectomy, cholecystectomy, hip replacement, hysterectomy, knee replacement - Social History Smoking Status: Never smoker Smokeless Tobacco Status: No Alcohol use: none Drug use: none - Family History Mother Living Status: Hx Family Cardiac Disorders: Yes Hx Family Endocrine Disorder: Yes (DM) Father Family Member Ethnicity: Non- Living Status: Hx Family Cardiac Disorders: Yes Hx Family Respiratory Disorders: Yes (COPD) Hx Family Cancer: Yes (colon cancer mother) Hx Family GI Disorders: Yes Hx Family Endocrine Disorder: Yes Hx Family Neuromuscular Disorders: No Hx Family Neurologic Disorders: No Hx Family HEENT Disorders: No Hx Family Autoimmune Disorders: No Internal Medicine - H&P: Meds Buspirone HCl [Buspar] 5 mg PO BID 05/31/17 [History] OxyCODONE/APAP 10/325 [Percocet 10/325 MG] 1 tab PO Q6H PRN 05/31/17 [History] Propranolol [Inderal] 20 mg PO TID 05/31/17 [History] Trazodone HCl 150 - 300 mg PO HS 05/31/17 [History] Furosemide [Lasix] 20 mg PO DAILY #14 tablet 07/30/17 [Rx] Citalopram Hydrobromide [Citalopram HBr] 40 mg PO DAILY 08/10/17 [History] Sucralfate [Carafate] 1 gm PO TID 08/10/17 [History] 3 Allergy/AdvReac Type Severity Reaction Status Date / Time aspirin Allergy See Verified 05/31/17 12:34 Comments celecoxib [From Celebrex] Allergy Hives Verified 05/31/17 12:34 ibuprofen Allergy Hives Verified 05/31/17 12:34 Sulfa (Sulfonamide Allergy Rash Verified 05/31/17 12:34 Antibiotics) All Systems PM: A 10-system review of systems was performed and is negative for pertinent findings except as documented above in the HPI. - Constitutional Vitals: Temp Pulse Resp BP Pulse Ox 98.1 F 91 16 143/76 99 08/10/17 15:30 08/10/17 15:45 08/10/17 15:30 08/10/17 15:45 08/10/17 15:45 General appearance: Present: mild distress, A&O X 3 - Neck Neck exam general surgery: Present: supple, trachea midline. Absent: lymphadenopathy - Respiratory Respiratory exam: Present: CTAB. Absent: accessory muscle use, rales, rhonchi, wheezes - Cardiovascular Cardiovascular exam: Present: RRR, +S1, +S2. Absent: diastolic murmur, gallop, rubs, systolic murmur - GI/Abdominal GI/Abdominal exam: Present: normal bowel sounds, soft, tenderness (Tenderness to palpation in the epigastric area), no peritoneal signs. Absent: distended - Extremities Exam Extremities exam: Present: pedal edema (Trace pitting edema of lower extremities ), warm, radial pulses palpable and symmetrical. Absent: calf tenderness, cyanotic - Neurological Exam Neurological exam: Present: CN II-XII intact, oriented X3, no focal deficits. Absent: facial droop, speech deficit - Skin Skin exam: Present: dry, intact Internal Med - H&P Results - Labs CBC & Chem 7: 08/10/17 11:03 08/10/17 10:58
[2017-08-10] MEDS ORDERED: Ondansetron 4 MG/2 ML VIAL IVP PRN (17:07)
[2017-08-10] MEDS ORDERED: Naloxone 0.4 MG/ML INJ IVP PRN (17:07)
[2017-08-10] MEDS ORDERED: Ringers Solution, Lactated 1,000 ML IVC SCH (17:15)
[2017-08-10] MEDS: *HR* FentaNYL (PF) 100 MCG/2 ML VIAL IVP SCH ×3 (18:06→23:26)
[2017-08-10] MEDS: OXYCODONE Oral CONC 10 MG/0.5 ML ORAL.SYG SL PRN (18:29)
[2017-08-10] MEDS: *HR* LORazepam 2 MG/ML VIAL IVP PRN (18:29)
[2017-08-10] MEDS: *HR* Metoprolol 5 MG/5 ML VIAL IVP SCH (18:29)
[2017-08-10] MEDS: traZODone 50 MG TABLET PO SCH (20:59)
[2017-08-10] MEDS: 0.9 % Sodium Chloride 1,000 ML IVC SCH (20:59)
[2017-08-11] MEDS: *HR* Metoprolol 5 MG/5 ML VIAL IVP SCH ×3 (00:30→11:27)
[2017-08-11] MEDS: *HR* FentaNYL (PF) 100 MCG/2 ML VIAL IVP SCH ×8 (00:30→16:09)
[2017-08-11] MEDS: *HR* LORazepam 2 MG/ML VIAL IVP PRN (00:30)
[2017-08-11 04:31] LABS: Basophils % 0.2 %; Eosinophils % 0.5 %; Hematocrit 38.4 % (35.3-44.9); Hemoglobin 12.5 g/dL (11.5-15.4); Immature Granulocytes % 1.5 % (0-4); Immature Platelets 11.7 % (1.1-6.1); Lymphocytes # 1.2 K/mcL (0.6-4.6); Mean Corpuscular HGB Conc 32.6 g/dL (31.6-35.5); Mean Corpuscular Hemoglobin 29.8 pg (28.0-33.3); Mean Corpuscular Volume 91.6 fL (83.0-100.0); Monocytes # 0.3 K/mcL (0.0-1.3); Monocytes % 7.3 %; Neutrophils # 2.6 K/mcL (1.6-8.9); Red Blood Count 4.19 M/mcL (3.82-4.97); Red Cell Distribution Width 13.8 % (11.5-14.5); Segmented Neutrophils % 62.5 %
[2017-08-11 04:45] LABS: Alanine Aminotransferase 25 Units/L (7-52); Albumin 3.6 g/dL (3.5-5.7); Albumin/Globulin Ratio 1.1 (1.1-2.2); Alkaline Phosphatase 107 Units/L (34-104); Aspartate Amino Transferase 36 Units/L (13-39); BUN/Creatinine Ratio 33 (6-26); Bilirubin,Total 0.9 mg/dL (0.3-1.0); Blood Urea Nitrogen 20 mg/dL (8-23); Calcium 8.5 mg/dL (8.6-10.3); Carbon Dioxide 22 mEq/L (23-29); Chloride 106 mEq/L (98-107); Chol/HDL Ratio 2.1 (0-4.9); Cholesterol 176 mg/dL (< 200); Globulin 3.3 g/dL (2.4-3.5); Glucose 157 mg/dL (70-105); HDL Cholesterol 84 mg/dL (40-59); LDL Cholesterol,Calculated 81 mg/dL (0-99); Magnesium 1.7 mg/dL (1.6-2.6); Osmolality,Calculated 294 (280-300); Phosphorous 3.6 mg/dL (2.7-4.5); Potassium 3.8 mEq/L (3.5-5.1); Sodium 139 mEq/L (136-145); Total Protein 6.9 g/dL (6.4-8.9); Triglycerides 56 mg/dL (< 150); eGFR For African Americans > 60 (> 60); eGFR For Non-African Americans > 60 (> 60)
[2017-08-11 05:11] LABS: Platelet Count 139 K/mcL (140-400)
[2017-08-11] MEDS: OXYCODONE Oral CONC 10 MG/0.5 ML ORAL.SYG SL PRN ×3 (05:23→17:59)
[2017-08-11] MEDS: niCARdipine 40 MG/200 ML MLS IVC SCH ×2 (07:50→16:43)
[2017-08-11] MEDS: 0.9 % Sodium Chloride 1,000 ML IVC SCH (09:00)
--- NOTE | 2017-08-11 14:24 | Internal Med Progress Note ---
Date of Encounter: 08/11/17 Time of Encounter: 14:21 - Assessment and plan (1) Uncontrolled hypertension Current Visit: Yes Status: Acute Assessment and plan: Likely related to uncontrolled to abdominal pain and back pain. Weaning off the Cardene drip. Add oamlodipine 5 mg, resume home medication propanolol (2) Pancreatitis Current Visit: No Status: Acute Assessment and plan: Acute on chronic pancreatitis Continue IV fluids and by mouth Consult to nutrition MRCP tomorrow morning Qualifiers: Chronicity: acute Pancreatitis type: idiopathic Acute pancreatitis complication: no infection or necrosis Qualified Code(s): K85.00 - Idiopathic acute pancreatitis without necrosis or infection (3) Severe protein-calorie malnutrition Current Visit: No Status: Acute (4) GERD (gastroesophageal reflux disease) Current Visit: Yes Status: Acute Assessment and plan: Continue PPI Qualifiers: Esophagitis presence: esophagitis presence not specified Qualified Code(s) : K21.9 - Gastro-esophageal reflux disease without esophagitis (5) Chronic back pain Current Visit: No Status: Chronic Assessment and plan: Continue pain pump Qualifiers: Back pain location: low back pain Back pain laterality: midline Sciatica presence: without sciatica Qualified Code(s): M54.5 - Low back pain; G89.29 - Other chronic pain; G89.29 - Other chronic pain (6) DVT prophylaxis Current Visit: No Status: Acute - Subjective Interval history: Ms. Tello is a 77 year old female with past medical history significant for recurrent acute pancreatitis, hypertension, GERD, hyperlipidemia who presents to the hospital for evaluation of abdominal pain. She was admitted 1 month ago and treated for acute pancreatitis. After discharge her abdominal pain had been tolerable. For the last 4 days she reported worsening epigastric abdominal pain described as squeezing, today was 10/10 radiating to her left flank and back. She reports associated nausea and decreased appetite. No vomiting. Food ingestion worsens the pain. patient was admitted on 08/10 for acute on chronci pancreatitis and hypertensive urgency 1. hypertensive urgency, wean off nicardipime drip, add amlodipime, resume home medication 2. acute on chronic pancreatitis, MRCP tomorrow, IVF, pain control, nutrition consult 3. chronic schneider on pain pump - Constitutional Vitals: Temp Pulse Resp BP Pulse Ox 98.2 F 97 17 170/86 97 08/11/17 11:22 08/11/17 12:32 08/11/17 11:22 08/11/17 12:32 08/11/17 12:32 General appearance: Present: cachectic, mild distress, A&O X 3, pleasant Exam: CONSTITUTIONAL: patient appears as an age appropriate female in no acute distress. EYES Clear sclerae, bilateral pupils are equal, reactive to light. EMOI. RESPIRATORY: No accessory muscle use, bilateral clear to auscultation, no wheezing, no crackles/rales. CARDIOVASCULAR: Regular heart rate, normal S1 and S2, no murmurs GASTROINTESTINAL: bowel sounds present, soft, no tenderness. MUSCULOSKELETAL: Joints in normal range of motion, no clubbing, no edema, no cyanosis. Bilateral peripheral pulses 2+. NEUROLOGIC: CN II to XII are grossly intact, no focal neurological deficit. Internal Medicine: Result - Labs CBC & Chem 7: 08/11/17 03:38 08/11/17 03:38 Labs: Short CBC 08/11/17 Range/Units 03:38 WBC 4.1 L (4.3-11.1) K/mcL Hgb 12.5 (11.5-15.4) g/dL Hct 38.4 (35.3-44.9) % Plt Count 139 L (140-400) K/mcL Neutrophils # 2.6 (1.6-8.9) K/mcL BMP 08/11/17 03:38 Sodium 139 Potassium 3.8 Chloride 106 Carbon Dioxide 22 L BUN 20 Creatinine 0.60 Glucose 157 H Calcium 8.5 L Liver Function 08/11/17 Range/Units 03:38 Total Bilirubin 0.9 (0.3-1.0) mg/dL AST 36 (13-39) Units/L ALT 25 (7-52) Units/L Alkaline Phosphatase 107 H (34-104) Units/L Albumin 3.6 (3.5-5.7) g/dL - ABG Interpretation ABG results: PT/INR, D-dimer PT 12.3 Seconds (9.4-12.1) H 08/10/17 11:03 Consult Discharge Plan - Plan Referrals: Darrick Bello MD [Primary Care Provider] -
[2017-08-11] MEDS: Sucralfate 1 GM TABLET PO SCH ×2 (14:57→21:06)
[2017-08-11] MEDS: amLODIPine 5 MG TABLET PO SCH (14:57)
[2017-08-11] MEDS: *HR* FentaNYL (PF) 100 MCG/2 ML VIAL IVP PRN ×2 (19:10→21:06)
[2017-08-11] MEDS: traZODone 50 MG TABLET PO SCH (21:06)
[2017-08-12] MEDS: OXYCODONE Oral CONC 10 MG/0.5 ML ORAL.SYG SL PRN ×4 (00:05→20:22)
[2017-08-12] MEDS: *HR* FentaNYL (PF) 100 MCG/2 ML VIAL IVP PRN ×4 (05:21→18:47)
[2017-08-12] MEDS: *HR* LORazepam 2 MG/ML VIAL IVP PRN (05:22)
[2017-08-12] MEDS: amLODIPine 5 MG TABLET PO SCH (07:48)
[2017-08-12] MEDS: Sucralfate 1 GM TABLET PO SCH ×3 (07:48→20:16)
[2017-08-12 11:10] LABS: Basophils % 0.2 %; Eosinophils % 0.2 %; Hematocrit 39.5 % (35.3-44.9); Hemoglobin 12.2 g/dL (11.5-15.4); Immature Granulocytes % 0.4 % (0-4); Lymphocytes # 1.6 K/mcL (0.6-4.6); Lymphocytes % 27.4 %; Mean Corpuscular HGB Conc 30.9 g/dL (31.6-35.5); Mean Corpuscular Hemoglobin 28.8 pg (28.0-33.3); Mean Corpuscular Volume 93.4 fL (83.0-100.0); Mean Platelet Volume 11.1 fL (9.4-12.4); Monocytes # 0.6 K/mcL (0.0-1.3); Monocytes % 10.5 %; Neutrophils # 3.5 K/mcL (1.6-8.9); Platelet Count 228 K/mcL (140-400); Red Blood Count 4.23 M/mcL (3.82-4.97); Red Cell Distribution Width 14.1 % (11.5-14.5); Segmented Neutrophils % 61.3 %
--- NOTE | 2017-08-12 11:11 | Gastroenterology Consult Note ---
Date of Encounter: 08/12/17 Time of Encounter: 10:00 - Assessment and plan (1) Pancreatitis Current Visit: No Status: Acute Assessment and plan: Restart IV fluids at 125 ml/hr. Continue pain control and anti-emetics. BISAP score 1 on admission. Complete MRCP and check Ca 19-9. IgG4, FLIP, and triglycerides were negative during last admission. Consider Creon. Qualifiers: Chronicity: acute Pancreatitis type: idiopathic Acute pancreatitis complication: no infection or necrosis Qualified Code(s): K85.00 - Idiopathic acute pancreatitis without necrosis or infection - Time Spent With Patient Total time spent is greater than 50% in coordination of care (as documented) at patient's floor/unit and/or counseling patient: GI History of Present Illness - Data of Consult Patient: known to practice within the last 3 years Consult date: 08/12/17 Requesting Physician: Myrna Aparicio MD - Consult Narrative Reason for consult: Recurrent pancreatitis History of present illness: Ms. Tello is a 77 year old female with PMHx of HLD, HTN, GERD, pancreatitis, breast cancer, [place], s/p cholecystectomy who presented to the ED for evaluation of abdominal pain. She was admitted in May 2017 and treated for acute pancreatitis. She reported worsening abdominal pain for 4 days prior to admission, and the day of admission, she complained of 10/10 abdominal pain. She also complains of nausea and decreased appetite. She denies any vomiting. Lipase on admission was low at 6. She was started on IV fluids, pain control, and antiemetics. She denies any alcohol use. CT A/P with marked fluid surrounding the pancreas, similar to the previous study (05/31/2017), which may be related to acute pancreatitis. Pt denies any alcohol use. She does report some weight loss as well. Procedures: Colonoscopy 08/14/2015 Dr. Chinchilla: Diverticulosis, capsule endoscopy recommended. EGD 08/14/2015 Dr. Chinchilla: Large diverticulum in distal stomach. NSAIDs: None Anticoagulation: None Past Med Surg Social Fam HX - Past Medical History Medical history: cancer, GERD, hyperlipidemia, hypertension, myocardial infarction, RA, thyroid disease, other Psychiatric history: anxiety, depression - Past Surgical History Surgical History: appendectomy, cholecystectomy, hip replacement, hysterectomy, knee replacement - Social History Smoking Status: Never smoker Smokeless Tobacco Status: No Alcohol use: none Drug use: none - Family History Mother Living Status: Hx Family Cardiac Disorders: Yes Hx Family Endocrine Disorder: Yes (DM) Father Family Member Ethnicity: Non- Living Status: Hx Family Cardiac Disorders: Yes Hx Family Respiratory Disorders: Yes (COPD) Hx Family Cancer: Yes (colon cancer mother) Hx Family GI Disorders: Yes Hx Family Endocrine Disorder: Yes Hx Family Neuromuscular Disorders: No Hx Family Neurologic Disorders: No Hx Family HEENT Disorders: No Hx Family Autoimmune Disorders: No - Gastrointestinal Gastrointestinal: Present: as per HPI - Constitutional Constitutional: as per HPI - EENT Eyes: as per HPI Ears: Present: as per HPI Nose, mouth and throat: Present: as per HPI - Cardiovascular Cardiovascular ROS: Present: as per HPI - Respiratory Respiratory IM: Present: as per HPI - Genitourinary Genitourinary: Absent: change in color, Urinary frequency - Neurological ROS Neurological GI: Present: as per HPI - Hematologic/Lymphatic Hematologic/Lymphatic pediatric: Present: as per HPI - Musculoskeletal Musculoskeletal ROS GI: Present: as per HPI - Integumentary Integumentary GI: Present: as per HPI - Psychiatric ROS Psychiatric GI: Present: as per HPI - Endocrine Endocrine IM: Present: as per HPI - Constitutional Vitals: Temp Pulse Resp BP Pulse Ox 98.7 F 111 14 174/92 99 08/12/17 07:13 08/12/17 07:13 08/12/17 07:13 08/12/17 07:13 08/12/17 07:13 General appearance: Present: cooperative, A&O X 3, no acute distress, answers questions appropriately - Head Head exam: Present: atraumatic, normocephalic - Eye Eye exam: Present: normal appearance, sclera anicteric - ENT ENT exam: Present: mucous membranes dry - Neck Neck exam general surgery: Present: normal inspection, trachea midline - Respiratory Respiratory exam: Present: CTAB - Cardiovascular Cardiovascular exam: Present: RRR, +S1, +S2 - GI/Abdominal GI/Abdominal exam: Present: soft, tenderness (epigastric), no peritoneal signs. Absent: distended, firm, guarding - Rectal Rectal exam: Present: deferred - Extremities Exam Extremities exam: Present: warm - Neurological Exam Neurological exam: Present: no focal deficits - Psychiatric Psychiatric exam: Present: normal affect, normal mood - Skin Skin exam: Present: dry, intact, normal color, warm Results - Labs CBC & Chem 7: 08/11/17 03:38 08/11/17 03:38 Labs: Last Result Calcium 8.5 mg/dL (8.6-10.3) L 08/11/17 03:38 Troponin I < 0.03 ng/mL (< 0.04) 08/10/17 10:58 Triglycerides 56 mg/dL (< 150) 08/11/17 03:38 Entire Visit Hgb 12.5 g/dL (11.5-15.4) 08/11/17 03:38 Hct 38.4 % (35.3-44.9) 08/11/17 03:38 PT 12.3 Seconds (9.4-12.1) H 08/10/17 11:03 Total Bilirubin 0.9 mg/dL (0.3-1.0) 08/11/17 03:38 AST 36 Units/L (13-39) 08/11/17 03:38 ALT 25 Units/L (7-52) 08/11/17 03:38 Amylase 48 Units/L (29-103) 08/10/17 10:58 Lipase 6 Units/L (11-82) L 08/10/17 10:58 - ABG ABG results: PT/INR, D-dimer PT 12.3 Seconds (9.4-12.1) H 08/10/17 11:03 Consult Discharge Plan - Plan Referrals: Darrick Bello MD [Primary Care Provider] - (Cannot make appt until discharge paperwork complete)
[2017-08-12 11:24] LABS: BUN/Creatinine Ratio 38 (6-26); Blood Urea Nitrogen 20 mg/dL (8-23); Carbon Dioxide 26 mEq/L (23-29); Chloride 103 mEq/L (98-107); Glucose 106 mg/dL (70-105); Magnesium 1.9 mg/dL (1.6-2.6); Osmolality,Calculated 291 (280-300); Potassium 2.9 mEq/L (3.5-5.1); Sodium 139 mEq/L (136-145); eGFR For African Americans > 60 (> 60); eGFR For Non-African Americans > 60 (> 60)
[2017-08-12] MEDS ORDERED: *HR* HYDROmorphone 2 MG/ML SYRINGE IVP ONE (12:00)
--- NOTE | 2017-08-12 13:27 | Internal Med Progress Note ---
Date of Encounter: 08/12/17 Time of Encounter: 13:25 - Assessment and plan (1) Uncontrolled hypertension Current Visit: Yes Status: Acute Assessment and plan: Likely related to uncontrolled to abdominal pain and back pain. off the Cardene drip. improved amlodipine 5 mg, resume home medication propanolol hYdralazine PRN added today (2) Pancreatitis Current Visit: No Status: Acute Assessment and plan: Acute on chronic pancreatitis Continue IV fluids and by mouth Consult to nutrition MRCP today GI consult appreciated, add creon, start clears Qualifiers: Chronicity: acute Pancreatitis type: idiopathic Acute pancreatitis complication: no infection or necrosis Qualified Code(s): K85.00 - Idiopathic acute pancreatitis without necrosis or infection (3) Severe protein-calorie malnutrition Current Visit: No Status: Acute Assessment and plan: nitrition is on board (4) GERD (gastroesophageal reflux disease) Current Visit: Yes Status: Chronic Assessment and plan: Continue PPI Qualifiers: Esophagitis presence: esophagitis presence not specified Qualified Code(s) : K21.9 - Gastro-esophageal reflux disease without esophagitis (5) Chronic back pain Current Visit: No Status: Chronic Assessment and plan: Continue pain pump Qualifiers: Back pain location: low back pain Back pain laterality: midline Sciatica presence: without sciatica Qualified Code(s): M54.5 - Low back pain; G89.29 - Other chronic pain; G89.29 - Other chronic pain (6) DVT prophylaxis Current Visit: No Status: Acute Assessment and plan: heparin SC - Time Spent With Patient 25 - 35 minutes - Subjective Interval history: Ms. Tello is a 77 year old female with past medical history significant for recurrent acute pancreatitis, hypertension, GERD, hyperlipidemia who presents to the hospital for evaluation of abdominal pain. She was admitted 1 month ago and treated for acute pancreatitis. After discharge her abdominal pain had been tolerable. For the last 4 days she reported worsening epigastric abdominal pain described as squeezing, today was 10/10 radiating to her left flank and back. She reports associated nausea and decreased appetite. No vomiting. Food ingestion worsens the pain. patient was admitted on 08/10 for acute on chronci pancreatitis and hypertensive urgency 1. hypertensive urgency, wean off nicardipime drip, add amlodipime, resume home medication 2. acute on chronic pancreatitis, MRCP , IVF, pain control, nutrition consult, GI consult appreciated 3. chronic schneider on pain pump 4. hypokalemia replaced Patient is very drowsy, still c/o pain 01/17, await fro MRCP, discussed to start on Creon and clears - Constitutional Vitals: Temp Pulse Resp BP Pulse Ox 98.3 F 99 18 147/80 95 08/12/17 11:13 08/12/17 11:13 08/12/17 11:13 08/12/17 11:13 08/12/17 11:13 General appearance: Present: cachectic, mild distress, A&O X 3, pleasant Exam: CONSTITUTIONAL: patient appears as an age appropriate female in no acute distress. EYES Clear sclerae, bilateral pupils are equal, reactive to light. EMOI. RESPIRATORY: No accessory muscle use, bilateral clear to auscultation, no wheezing, no crackles/rales. CARDIOVASCULAR: Regular heart rate, normal S1 and S2, no murmurs GASTROINTESTINAL: bowel sounds present, soft, mild tenderness. MUSCULOSKELETAL: Joints in normal range of motion, no clubbing, no edema, no cyanosis. Bilateral peripheral pulses 2+. NEUROLOGIC: CN II to XII are grossly intact, no focal neurological deficit. Internal Medicine: Result - Labs CBC & Chem 7: 08/12/17 10:38 08/12/17 10:38 Labs: Short CBC 08/12/17 Range/Units 10:38 WBC 5.7 (4.3-11.1) K/mcL Hgb 12.2 (11.5-15.4) g/dL Hct 39.5 (35.3-44.9) % Plt Count 228 D (140-400) K/mcL Neutrophils # 3.5 (1.6-8.9) K/mcL BMP 08/12/17 10:38 Sodium 139 Potassium 2.9 L Chloride 103 Carbon Dioxide 26 BUN 20 Creatinine 0.53 L Glucose 106 H Calcium 9.0 - ABG Interpretation ABG results: PT/INR, D-dimer PT 12.3 Seconds (9.4-12.1) H 08/10/17 11:03 Consult Discharge Plan - Plan Referrals: Darrick Bello MD [Primary Care Provider] - (Cannot make appt until discharge paperwork complete)
[2017-08-12] MEDS: 0.9 % Sodium Chloride 1,000 ML IVC SCH ×2 (14:40→23:07)
[2017-08-12] MEDS: *HR* Heparin 5,000 UNIT/ML VIAL SQ SCH ×2 (14:41→23:00)
[2017-08-12] MEDS: traZODone 50 MG TABLET PO SCH (20:16)
[2017-08-13] MEDS: OXYCODONE Oral CONC 10 MG/0.5 ML ORAL.SYG SL PRN ×5 (02:23→20:55)
[2017-08-13] MEDS: *HR* Heparin 5,000 UNIT/ML VIAL SQ SCH ×3 (06:16→20:56)
[2017-08-13] MEDS: 0.9 % Sodium Chloride 1,000 ML IVC SCH (07:00)
[2017-08-13 08:29] LABS: BUN/Creatinine Ratio 33 (6-26); Blood Urea Nitrogen 20 mg/dL (8-23); Calcium 8.3 mg/dL (8.6-10.3); Carbon Dioxide 26 mEq/L (23-29); Chloride 112 mEq/L (98-107); Glucose 94 mg/dL (70-105); Magnesium 1.8 mg/dL (1.6-2.6); Osmolality,Calculated 294 (280-300); Potassium 4.3 mEq/L (3.5-5.1); Sodium 141 mEq/L (136-145); eGFR For African Americans > 60 (> 60); eGFR For Non-African Americans > 60 (> 60)
[2017-08-13] MEDS: Sucralfate 1 GM TABLET PO SCH ×3 (09:23→20:56)
[2017-08-13] MEDS: amLODIPine 5 MG TABLET PO SCH (09:23)
--- NOTE | 2017-08-13 10:23 | Internal Med Progress Note ---
<Unique Syed - Last Filed: 08/13/17 17:04> Date of Encounter: 08/13/17 Time of Encounter: 10:17 - Assessment and plan (1) Pancreatitis Current Visit: No Status: Acute Assessment and plan: Acute on chronic pancreatitis. 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 Plan: appreciate G.I. recommendations. Continue with IV fluids-switched to LR due to hyerchloremia Continue with clear liquid diet. Appreciate nutrition recommendations. Continue pancreatic enzymes supplementation. patient reluctant to go home today. likely discharge tomorrow. Qualifiers: Chronicity: acute Pancreatitis type: idiopathic Acute pancreatitis complication: no infection or necrosis Qualified Code(s): K85.00 - Idiopathic acute pancreatitis without necrosis or infection (2) Uncontrolled hypertension Current Visit: Yes Status: Resolved Assessment and plan: Initially on Cardene drip and has now been weaned off. Etiology likely secondary to severe pain. Continue with norvasc (3) Severe protein-calorie malnutrition Current Visit: No Status: Acute Assessment and plan: consult to nutrition (4) GERD (gastroesophageal reflux disease) Current Visit: Yes Status: Chronic Assessment and plan: Continue PPI, carafate Qualifiers: Esophagitis presence: esophagitis presence not specified Qualified Code(s) : K21.9 - Gastro-esophageal reflux disease without esophagitis (5) Chronic back pain Current Visit: No Status: Chronic Assessment and plan: Continue pain pump Qualifiers: Back pain location: low back pain Back pain laterality: midline Sciatica presence: without sciatica Qualified Code(s): M54.5 - Low back pain; G89.29 - Other chronic pain; G89.29 - Other chronic pain (6) DVT prophylaxis Current Visit: No Status: Acute Assessment and plan: heparin SQ - Subjective Interval history: 37-year-old female evaluated at bedside. Patient denies vomiting, fever, chest pain, shortness of breath. She does admit to nausea without any episodes of vomiting. She is still having a hard time tolerating her clear liquid diet. She does admit to severe abdominal pain and epigastric area. - Constitutional Vitals: Temp Pulse Resp BP Pulse Ox 98.8 F 71 14 124/58 94 08/13/17 08:15 08/13/17 09:50 08/13/17 08:15 08/13/17 08:15 08/13/17 08:15 General appearance: Present: cachectic, mild distress, A&O X 3, pleasant, answers questions appropriately - Head Head exam: Present: atraumatic, normocephalic - Neck Neck exam general surgery: Present: supple, trachea midline - Respiratory Respiratory exam: Present: wheezes - GI/Abdominal GI/Abdominal exam: Present: hypoactive bowel sounds Additional comments: Severe epigastric tenderness to palpation. Soft, nondistended. - Extremities Exam Extremities exam: Absent: cyanotic, pedal edema - Neurological Exam Neurological exam: Present: alert, oriented X3, no focal deficits - Psychiatric Psychiatric exam: Present: normal affect, normal mood - Skin Skin exam: Present: intact Internal Medicine: Result - Labs CBC & Chem 7: 08/12/17 10:38 08/13/17 06:25 Labs: Short CBC 08/12/17 Range/Units 10:38 WBC 5.7 (4.3-11.1) K/mcL Hgb 12.2 (11.5-15.4) g/dL Hct 39.5 (35.3-44.9) % Plt Count 228 D (140-400) K/mcL Neutrophils # 3.5 (1.6-8.9) K/mcL BMP 08/12/17 08/13/17 10:38 06:25 Sodium 139 141 Potassium 2.9 L 4.3 D Chloride 103 112 H Carbon Dioxide 26 26 BUN 20 20 Creatinine 0.53 L 0.60 Glucose 106 H 94 Calcium 9.0 8.3 L - ABG Interpretation ABG results: PT/INR, D-dimer PT 12.3 Seconds (9.4-12.1) H 08/10/17 11:03 - Impressions Impressions Abdomen MRI 08/12/17 17:02 IMPRESSION: 1. Peripancreatic edema is noted consistent with pancreatitis demonstrated on recent CT imaging. 2. Status post cholecystectomy. No choledocholithiasis. Mild prominence of the biliary tree is noted, consistent with reservoir effect. 3. Imaging features of iron deposition in the liver, spleen and bone marrow, consistent with hemosiderosis/ secondary hemochromatosis. 3. Signal artifact from implanted device in the right abdomen obscures a portion of the abdominal viscera. D/ / Roverto Vizcarra / Roverto Vizcarra Interpreting Provider: Roverto Vizcarra Consult Discharge Plan - Plan Referrals: Darrick Bello MD [Primary Care Provider] - (Cannot make appt until discharge paperwork complete) <Mark Pace - Last Filed: 08/13/17 18:47> Date of Encounter: 08/13/17 - Constitutional Vitals: Temp Pulse Resp BP Pulse Ox 98.2 F 72 18 114/50 93 08/13/17 16:30 08/13/17 16:30 08/13/17 16:30 08/13/17 16:30 08/13/17 16:30 Internal Medicine: Result - Labs CBC & Chem 7: 08/12/17 10:38 08/13/17 06:25 Labs: BMP 08/13/17 06:25 Sodium 141 Potassium 4.3 D Chloride 112 H Carbon Dioxide 26 BUN 20 Creatinine 0.60 Glucose 94 Calcium 8.3 L - ABG Interpretation ABG results: PT/INR, D-dimer PT 12.3 Seconds (9.4-12.1) H 08/10/17 11:03 - Attending Attestation I examined this patient and my medical decision-making was reviewed with the Resident Physician. I agree with the documented findings, disposition and treatment plan as described except to the extent set forth below. Her pain seems to be out of proportion to exam, hopefully the pancreatic enzymes will help this. We will maintain bland diet. We will also SGI tomorrow if they think celiac axis block would be of benefit. Is again we have very few options at this time. Overall prognosis appears quite poor. Again her CT is unchanged from office 3 months ago.
[2017-08-13] MEDS ORDERED: Ipratropium/Albuterol Neb 3 ML IH PRN (10:30)
[2017-08-13] MEDS: *HR* LORazepam 2 MG/ML VIAL IVP PRN (11:58)
[2017-08-13] MEDS: Ringers Solution, Lactated 1,000 ML IVC SCH (17:40)
[2017-08-13] MEDS: traZODone 50 MG TABLET PO SCH (20:56)
[2017-08-14] MEDS: OXYCODONE Oral CONC 10 MG/0.5 ML ORAL.SYG SL PRN ×3 (01:23→11:31)
[2017-08-14] MEDS: *HR* Heparin 5,000 UNIT/ML VIAL SQ SCH ×2 (05:37→13:06)
[2017-08-14 05:53] LABS: BUN/Creatinine Ratio 17 (6-26); Blood Urea Nitrogen 10 mg/dL (8-23); Calcium 8.5 mg/dL (8.6-10.3); Carbon Dioxide 25 mEq/L (23-29); Chloride 110 mEq/L (98-107); Glucose 94 mg/dL (70-105); Magnesium 2.1 mg/dL (1.6-2.6); Osmolality,Calculated 291 (280-300); Sodium 141 mEq/L (136-145); eGFR For African Americans > 60 (> 60); eGFR For Non-African Americans > 60 (> 60)
--- NOTE | 2017-08-14 09:32 | Discharge Summary ---
<Unique Syed - Last Filed: 08/14/17 09:23> - NOTES TO OUTPATIENT PROVIDER Notes to Outpatient Provider: Had social work to help patient be able to afford her pancreatic enzymes and ensure. Date of Encounter: 08/14/17 Time of Encounter: 09:23 - Discharge Diagnosis (1) Pancreatitis Priority: Primary Status: Acute Qualifiers: Chronicity: acute Pancreatitis type: idiopathic Acute pancreatitis complication: no infection or necrosis Qualified Code(s): K85.00 - Idiopathic acute pancreatitis without necrosis or infection (2) Uncontrolled hypertension Priority: Secondary Status: Resolved (3) Severe protein-calorie malnutrition Priority: Secondary Status: Acute (4) GERD (gastroesophageal reflux disease) Priority: Secondary Status: Chronic Qualifiers: Esophagitis presence: esophagitis presence not specified Qualified Code(s) : K21.9 - Gastro-esophageal reflux disease without esophagitis (5) Chronic back pain Priority: Secondary Status: Chronic Qualifiers: Back pain location: low back pain Back pain laterality: midline Sciatica presence: without sciatica Qualified Code(s): M54.5 - Low back pain; G89.29 - Other chronic pain; G89.29 - Other chronic pain (6) DVT prophylaxis Priority: Secondary Status: Acute Hospital course: Ms. Tello is a 77 year old female with past medical history of chronic pancreatitis, GERD, HLD, HTN, thyroid disease, chronic pain. Patient arrived to the emergency department on 08/10/17 with chief complaint of diffuse abdominal pain. Of note, she was treated at the hospital about 1 month ago for acute pancreatitis. After discharge, her abdominal pain progressively worsened. She described the pain as 10/10 radiating to the left flank. She was admitted for further treatment. Upon admission, patient was in hypertensive urgency and was started on a Cardene drip that was eventually weaned off. her HTN was controlled well with norvasc. Her hypertension was likely secondary to severe abdominal pain. Patient was treated with aggressive IV fluid hydration, and eventually was able to tolerate a clear liquid diet. She was seen by gastroenterology, and they recommended continued supportive care. CT of the abdomen and pelvis showed fluid around pancreas, no focal fluid collection. MRCP also showed peripancreatic edema, no choledocolithiassi, mild prominence of the biliary tree, iron deposition of the liver. throughout the course of her hospitalization, patient's abdominal pain continue to improve and she was able to tolerate a clear liquid diet. She was counseled on eating a low -fat diet and eating frequent small meals to avoid abdominal pain. Patient also inquired about receiving a nerve block, which was discussed with gastroenterology. She will follow-up outpatient with gastroenterology regarding this procedure. Patient stated that she did have trouble being able to afford her pancreatic enzymes and ensure clear. Social work was involved to help with this. She had no acute events during her hospitalization and was discharged in stable condition. - Time Spent with Patient Total time spent providing and/or coordinating discharge services: Greater than 30 minutes (35) - Discharge Medications Prescriptions: amLODIPine [Norvasc] 5 mg PO DAILY #30 tablet Lipase/Protease/Amylase [Tamra Ibarra 6,000 Units Capsule] 2 each PO ACHS #120 capsule.dr [email or web address] Digest Fxn [Ensure Clear] 1 bottle PO TID #90 can Omeprazole [PriLOSEC] 20 mg PO DAILY@0630 #30 capsule. Home Medications: Buspirone HCl [Buspar] 5 mg PO BID 05/31/17 [History] OxyCODONE/APAP 10/325 [Percocet 10/325 MG] 1 tab PO Q6H PRN 05/31/17 [History] Propranolol [Inderal] 20 mg PO TID 05/31/17 [History] Trazodone HCl 150 - 300 mg PO HS 05/31/17 [History] Furosemide [Lasix] 20 mg PO DAILY #14 tablet 07/30/17 [Rx] Citalopram Hydrobromide [Citalopram HBr] 40 mg PO DAILY 08/10/17 [History] Sucralfate [Carafate] 1 gm PO TID 08/10/17 [History] Lipase/Protease/Amylase [Tamra Ibarra 6,000 Units Capsule] 2 each PO ACHS #120 capsule. 08/14/17 [Rx] Bashirimpaired Digest Fxn [Ensure Clear] 1 bottle PO TID #90 can 08/14/17 [Rx] Omeprazole [PriLOSEC] 20 mg PO DAILY@0630 #30 capsule. 08/14/17 [Rx] amLODIPine [Norvasc] 5 mg PO DAILY #30 tablet 08/14/17 [Rx] Allergies/Adverse Reactions: 3 Allergy/AdvReac Type Severity Reaction Status Date / Time aspirin Allergy See Verified 05/31/17 12:34 Comments celecoxib [From Celebrex] Allergy Hives Verified 05/31/17 12:34 ibuprofen Allergy Hives Verified 05/31/17 12:34 Sulfa (Sulfonamide Allergy Rash Verified 05/31/17 12:34 Antibiotics) Date of admission: 08/10/17 17:07 Primary care physician: Darrick Bello MD Consults: 08/12/17 09:02 Consult to Invasive Line Access Team [CONS] Routine Reason for Consult: Left arm compromised and unable to obtain labs Line Type: EPIV 08/12/17 09:54 Consult to Invasive Line Access Team [CONS] Routine Reason for Consult: unable to obtain labs and limited vascular access Line Type: EPIV 08/12/17 14:31 Consult to Occupational Therapy [CONS] Routine Comment: Evaluate, develop and implement POC Reason for Consult: Advanced deconditioning greater than expected for age. Consult to Physical Therapy [CONS] Routine Comment: Evaluate, develop and implement POC Reason for Consult: Advanced deconditioning greater than expected for age. 08/13/17 17:24 Consult to Ballet Professor [CONS] Stat Reason for SW Consult: needs help being able to afford pancreatic enzyme supplement and ensure clear Discharging clinician: Unique Syed Anticipated date of discharge: 08/14/17 - Constitutional Vitals: Temp Pulse Resp BP Pulse Ox 99.1 F 82 16 169/70 95 08/14/17 06:47 08/14/17 06:47 08/14/17 06:47 08/14/17 06:47 08/14/17 06:47 General appearance: Present: cachectic, mild distress, A&O X 3, pleasant, answers questions appropriately Exam: thin, very frail. - Head Head exam: Present: atraumatic, normocephalic - Neck Neck exam general surgery: Present: supple, trachea midline - Respiratory Respiratory exam: Present: CTAB - Cardiovascular Cardiovascular exam: Present: RRR, +S1, +S2 - GI/Abdominal GI/Abdominal exam: Present: soft, tenderness (Epigastric tenderness to palpation.). Absent: distended - Extremities Exam Extremities exam: Absent: cyanotic, pedal edema - Neurological Exam Neurological exam: Present: alert, oriented X3, no focal deficits - Psychiatric Psychiatric exam: Present: normal affect, normal mood - Skin Skin exam: Present: intact. Absent: cyanosis - Patient Status Disposition: Home, Self-Care Condition: Fair Functional capacity at discharge: independent ambulation Overall status at discharge: patient is progressing back to baseline - Discharge Instructions Follow Up With: Darrick Bello MD [Primary Care Provider] - (Cannot make appt until discharge paperwork complete) Alfonso Chinchilla MD [Partnered Physician] - Additional Instructions: Follow-up with your primary care provider within one week of discharge. Take all medications as prescribed. Follow up with gastroenterology. Return to the emergency department if symptoms become more severe, or if you develop uncontrolled hypertension. Please eat a low-fat and low-cholesterol diet, with small frequent meals daily to avoid abdominal pain from pancreatitis. - Diet and Activity Activity: increase activity as tolerated Diet: low fat, low cholesterol <Mark Pace - Last Filed: 08/14/17 17:43> Date of Encounter: 08/14/17 Hospital course: Ms. Tello is a 77 year old female - Time Spent with Patient Total time spent providing and/or coordinating discharge services: Date of admission: 08/10/17 17:07 Primary care physician: Darrick Bello MD Consults: 08/12/17 09:02 Consult to Invasive Line Access Team [CONS] Routine Reason for Consult: Left arm compromised and unable to obtain labs Line Type: EPIV 08/12/17 09:54 Consult to Invasive Line Access Team [CONS] Routine Reason for Consult: unable to obtain labs and limited vascular access Line Type: EPIV 08/12/17 14:31 Consult to Occupational Therapy [CONS] Routine Comment: Evaluate, develop and implement POC Reason for Consult: Advanced deconditioning greater than expected for age. Consult to Physical Therapy [CONS] Routine Comment: Evaluate, develop and implement POC Reason for Consult: Advanced deconditioning greater than expected for age. 08/13/17 17:24 Consult to Ballet Professor [CONS] Stat Reason for SW Consult: needs help being able to afford pancreatic enzyme supplement and ensure clear - Constitutional Vitals: Temp Pulse Resp BP Pulse Ox 98.6 F 73 16 127/52 96 08/14/17 15:15 08/14/17 15:15 08/14/17 15:15 08/14/17 15:15 08/14/17 15:15 - Attending Attestation I examined this patient and my medical decision-making was reviewed with the Resident Physician. I agree with the documented findings, disposition and treatment plan as described except to the extent set forth below. Unfortunately , her insurance will not pay for the crayon or other pancreatic enzymes, this may be too expensive for her. Unfortunately there are no other options. She will be seeing GI in follow-up as an outpatient for potential need of celiac axis block. Her prognosis remains guarded at best.
[2017-08-14] MEDS: amLODIPine 5 MG TABLET PO SCH (09:34)
[2017-08-14] MEDS: Sucralfate 1 GM TABLET PO SCH ×2 (09:38→16:14)
[2017-08-14] MEDS: Ringers Solution, Lactated 1,000 ML IVC SCH (10:49)
[2017-08-14] MEDS: *HR* LORazepam 2 MG/ML VIAL IVP PRN (13:13)
[2017-08-14 15:17] VITALS: BP 127/52
--- NOTE | 2017-08-14 16:19 | Electrocardiograph Report ---
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
--- NOTE | 2017-08-14 16:26 | Physician Discharge Referral ---
<Unique Syed - Last Filed: 08/14/17 16:26> Home Health/Hosp Referral Info Transfer to: Home Health Provider in Charge Post Discharge: PCP - Diagnosis (1) Pancreatitis Priority: Primary Status: Acute (2) Uncontrolled hypertension Priority: Secondary Status: Resolved (3) Severe protein-calorie malnutrition Priority: Secondary Status: Acute (4) GERD (gastroesophageal reflux disease) Priority: Secondary Status: Chronic (5) Chronic back pain Priority: Secondary Status: Chronic (6) DVT prophylaxis Priority: Secondary Status: Acute - Respiratory Orders Smoking Cessation: Smoking cessation has been advised. For more information, call the [place] Tobacco Quit Line at 8-678-OIHT-NOW. - Diet/Nutrition Diet/Nutrition Orders: Cardiac - Activity Activity Orders: Up ad scot, Ambulate - Services Needed Following services are medically necessary services: Nursing, Home Health Aide, Physical Therapy, Occupational Therapy - Transfer Medications Prescriptions: amLODIPine [Norvasc] 5 mg PO DAILY #30 tablet Lipase/Protease/Amylase [Tamra Ibarra 6,000 Units Capsule] 2 each PO ACHS #120 capsule.dr Camejoimpaired Digest Fxn [Ensure Clear] 1 bottle PO TID #90 can Omeprazole [PriLOSEC] 20 mg PO DAILY@0630 #30 capsule. Home Medications: Buspirone HCl [Buspar] 5 mg PO BID 05/31/17 [History] OxyCODONE/APAP 10/325 [Percocet 10/325 MG] 1 tab PO Q6H PRN 05/31/17 [History] Propranolol [Inderal] 20 mg PO TID 05/31/17 [History] Trazodone HCl 150 - 300 mg PO HS 05/31/17 [History] Furosemide [Lasix] 20 mg PO DAILY #14 tablet 07/30/17 [Rx] Citalopram Hydrobromide [Citalopram HBr] 40 mg PO DAILY 08/10/17 [History] Sucralfate [Carafate] 1 gm PO TID 08/10/17 [History] Lipase/Protease/Amylase [Tamra Ibarra 6,000 Units Capsule] 2 each PO ACHS #120 capsule. 08/14/17 [Rx] Bashirimpaired Digest Fxn [Ensure Clear] 1 bottle PO TID #90 can 08/14/17 [Rx] Omeprazole [PriLOSEC] 20 mg PO DAILY@629 #30 capsule. 08/14/17 [Rx] amLODIPine [Norvasc] 5 mg PO DAILY #30 tablet 08/14/17 [Rx] Allergies/Adverse Reactions: 3 Allergy/AdvReac Type Severity Reaction Status Date / Time aspirin Allergy See Verified 05/31/17 12:34 Comments celecoxib [From Celebrex] Allergy Hives Verified 05/31/17 12:34 ibuprofen Allergy Hives Verified 05/31/17 12:34 Sulfa (Sulfonamide Allergy Rash Verified 05/31/17 12:34 Antibiotics) Certification: Further, I certify that my clinical findings support that this patient is homebound (i.e. absences from home require considerable and taxing effort and are for medical reasons or gnosticist services or infrequently or short duration when for other reasons) because: Attestation: My signature below is to certify that this patient is under my care and that I, or nurse practitioner, or a physician's web production assistant working with me, has a face-to -face encounter with this patient. <Mark Pace - Last Filed: 08/14/17 18:17> - Respiratory Orders Smoking Cessation: Smoking cessation has been advised. For more information, call the [place] Tobacco Quit Line at 7-153-ISYD-NOW. Certification: Further, I certify that my clinical findings support that this patient is homebound (i.e. absences from home require considerable and taxing effort and are for medical reasons or gnosticist services or infrequently or short duration when for other reasons) because: Homebound Reason: Patient requires assistance of a person or device to safely leave home Attestation: My signature below is to certify that this patient is under my care and that I, or nurse practitioner, or a physician's web production assistant working with me, has a face-to -face encounter with this patient.
== END 2017-08-14 17:58 | disposition home or self-care (01) | DRG 438 ==
LOC: EMEROO 10:29 → 2NNU 10:29 → SUATTDRO 17:07 → 3NENU 08-14 01:31
PROVIDERS: ADMIT Internal Medicine; ATTEND Hospitalist